=== PATIENT | female | born 1995 | race Two or more races ===

== ENCOUNTER → 2020-03-29 10:01 | Outpatient (BNVA) | payer MEDICAID, SELFPAY | PROVIDERS: Visit Provider Surgery | DX: E66.01 Morbid (severe) obesity due to excess calories (principal); Z68.42 Body mass index [BMI] 45.0-49.9, adult; Z71.3 Dietary counseling and surveillance | CPT/HCPCS: 99202 ==

== ENCOUNTER 2020-03-30 14:35 | Outpatient (REF) | payer MEDICAID, SELFPAY ==
[2020-04-01 14:21] LABS: H Pylori Breath Test NOT DETECTED (NOT DETECTED)
== END 2020-03-30 14:36 | disposition home or self-care (01) ==
LOC: HO.LNP 14:35
PROVIDERS: Visit Provider Physician Assistant
DX: Z01.818 Encounter for other preprocedural examination (principal); Z11.0 Encounter for screening for intestinal infectious diseases
CPT/HCPCS: 83013

== ENCOUNTER → 2020-03-30 14:45 | Outpatient (BNVA) | payer MEDICAID, SELFPAY | PROVIDERS: PCP Registered Nurse; Visit Provider Physician Assistant | DX: Z01.818 Encounter for other preprocedural examination (principal); Z11.0 Encounter for screening for intestinal infectious diseases | CPT/HCPCS: 99211 ==

== ENCOUNTER 2020-03-31 06:25 | Outpatient (REF) | payer MEDICAID, SELFPAY ==
--- NOTE | 2020-03-31 | ECG_ITS ---
Test Reason : Z01.818 Blood Pressure : / mmHG Vent. Rate : 091 BPM Atrial Rate : 091 BPM P-R Int : 118 ms QRS Dur : 082 ms QT Int : 346 ms P-R-T Axes : 031 014 004 degrees QTc Int : 425 ms Normal sinus rhythm Normal ECG No previous ECGs available Referred By: Thomas Gold Electronically Signed By:AVNI GROVES MD
--- NOTE | 2020-03-31 07:16 | XR_ITS ---
EXAMINATION: XR CHEST CLINICAL INFORMATION: Morbid obesity. COMPARISON: 05/24/2019 TECHNIQUE: 2 views of the chest were obtained. FINDINGS: Lungs are well-inflated and clear. Trachea is midline in position. No interstitial disease, consolidation or mass. No pleural effusion or pneumothorax. Cardiac silhouette and pulmonary vessels are normal in size. The mediastinum and miranda have normal contour. The visualized bones, and upper abdomen, are unremarkable. XR/XR chest 2V IMPRESSION: No acute cardiopulmonary abnormality.
[2020-03-31 07:21] LABS: MANUAL DIFF FLAG NO
[2020-03-31 07:31] LABS: Basophils Percent Auto 0.3 % (0-2); Eosinophils Absolute Auto 0.3 X10*3/uL (0.0-0.4); Hematocrit 42.4 % (37-47); Imm Gran Abs Auto 0.06 X10*3/uL (0.00-0.03); Imm Gran Pct Auto 0.4 % (0.0-0.4); Lymphocytes Absolute Auto 4.6 X10*3/uL (1.2-4.9); Lymphocytes Percent Auto 33.7 % (20-40); Mean Corpuscular Hemoglobin 31.5 pg (27.0-33.0); Mean Corpuscular Volume 95.3 fL (80-98); Monocytes Absolute Auto 0.8 X10*3/uL (0.1-1.2); Neutrophils Absolute Auto 7.8 X10*3/uL (2.0-8.3); Neutrophils Percent Auto 57.6 % (45-73); Platelet Count 337 X10*3/uL (160-400); Red Blood Count 4.45 X10*6/uL (4.20-5.50); Red Cell Distribution Width 13.2 % (11.0-16.0); White Blood Count 13.6 X10*3/uL (4.8-10.8)
[2020-03-31 07:48] LABS: Alanine Aminotransferase 40 U/L (0-31); Albumin Level 4.5 g/dL (3.5-5.0); Alkaline Phosphatase 93 U/L (39-117); Anion Gap 13 (12-20); Aspartate Amino Transferase 32 U/L (5-31); Bilirubin Total 0.5 mg/dL (0.0-1.0); Blood Urea Nitrogen 14 mg/dL (9-16); C Reactive Protein 2.49 mg/dL (< or = 0.50); Calcium 9.6 mg/dL (8.4-10.2); Carbon Dioxide 28 mmol/L (22-29); Chloride 102 mmol/L (96-108); Cholesterol 221 mg/dL; Estimated Glomerular Filt Rate > 60; Glucose Random 86 mg/dL (60-115); HDL Cholesterol 39 mg/dL; LDL Cholesterol Calculated 156 mg/dl; Potassium 4.4 mmol/l (3.3-5.1); Sodium 139 mmol/L (135-145); Total Protein 8.5 g/dL (6.5-8.0); Triglycerides 133 mg/dL
[2020-03-31 07:49] LABS: Estimated Average Glucose 103 mg/dL; Hemoglobin A1c % 5.2 %
[2020-03-31 08:10] LABS: Ferritin 50 ng/mL (10-122); TSH reflex Free T4 1.57 mIU/mL (0.32-4.0)
[2020-03-31 08:24] LABS: Folate 13.9 ng/mL (> or = 4.0); Vitamin B12 400 pg/mL (200-900)
[2020-04-02 23:56] LABS: Zinc 68 mcg/dL (60-130)
[2020-04-04 06:36] LABS: Vitamin B1 11 nmol/L (8-30)
[2020-04-04 12:17] LABS: Insulin Level Total 24.3 uIU/mL
[2020-04-06 19:22] LABS: Vitamin A 54 mcg/dL (38-98)
== END 2020-03-31 06:26 | disposition home or self-care (01) ==
LOC: HO.XRAY 06:25
PROVIDERS: Visit Provider Surgery
DX: Z01.818 Encounter for other preprocedural examination (principal); E66.01 Morbid (severe) obesity due to excess calories
CPT/HCPCS: 36415; 71046; 80053; 80061; 82607; 82728; 82746; 83036; 83525; 84425; 84443; 84590; 84630; 85025; 86140; 93005

== ENCOUNTER → 2020-04-11 13:12 | Outpatient (BNVA) | payer MEDICAID, SELFPAY | PROVIDERS: PCP Registered Nurse; Referring Provider Registered Nurse; Visit Provider Dietitian, Registered | DX: Z76.89 Persons encountering health services in other specified circumstances (principal) ==

== ENCOUNTER 2020-04-12 09:17 | Outpatient (REF) | payer MEDICAID, SELFPAY ==
--- NOTE | 2020-04-12 | US_ITS ---
EXAMINATION: US COMPLETE ABDOMEN WITH LIVER ELASTOGRAPHY CLINICAL INFORMATION: Morbid obesity due to excess calories. COMPARISON: None. TECHNIQUE: Real-time imaging of the abdominal viscera. Noninvasive ultrasound liver fibrosis assessment is performed using Ousmane ElastPQ point quantification shear wave elastography (pSWE) with a 5 MHz transducer. Multiple elastography samples are obtained. FINDINGS: PANCREAS: Normal. ABDOMINAL AORTA: The proximal, middle, and distal aortic segments are normal in caliber. INFERIOR VENA CAVA: Visualized portions are normal. LIVER: Normal. The liver demonstrates normal size, contour and echogenicity. No focal lesion or intrahepatic biliary duct dilatation. The right lobe measures 18.3 cm in length. The left lobe measures 12.1 cm in length. Hepatopedal flow of the main portal vein. Shear wave elastography provides a median stiffness of 2.04 m/s (reference: normal median stiffness is 0.81 - 1.22 m/s). The IQR/median stiffness to assess sampling precision is 0.28 (reference: optimal IQR/median stiffness is under 0.3). GALLBLADDER: Cholecystectomy. COMMON BILE DUCT: Normal in caliber measuring 0.4 cm in diameter. RIGHT KIDNEY: Normal. No hydronephrosis. No renal calculi or focal parenchymal lesions. The kidney measures 12.4 cm in maximum dimension. LEFT KIDNEY: Normal. No hydronephrosis. No renal calculi or focal parenchymal lesions. The kidney measures 10.5 cm in maximum dimension. SPLEEN: Normal. The spleen measures 9.5 cm in maximum dimension. FREE FLUID: None. US/US abdomen comp w elastography IMPRESSION: 1. Cholecystectomy. Otherwise unremarkable abdominal ultrasound. 2. Elastography: Liver elastography measurements are consistent with a high risk for clinically significant liver fibrosis (METAVIR Stage F3-F4).
--- NOTE | 2020-04-12 10:03 | FL_ITS ---
EXAMINATION: XR GI SERIES CLINICAL INFORMATION: Morbid obesity due to excess calories COMPARISON: None TECHNIQUE: Fluoroscopic assessment of the upper GI tract was performed in various upright and supine/prone obliquities utilizing thin and thick high density barium contrast material and effervescent granules. FINDINGS: The esophagus was normal in course, caliber, and contour. There was normal distensibility with no fixed segment of narrowing. No focal mucosal abnormality was identified. No significant esophageal dysmotility was observed. Contrast passed freely across the gastroesophageal junction into the stomach. No significant hiatal hernia. There was normal distensibility of the stomach with no focal abnormality identified. There was prompt gastric emptying into the duodenum which demonstrated a normal appearance. No gastroesophageal reflux was observed. FLUOROSCOPY TIME: 1.6 minutes DOSE AREA PRODUCT: 31.306 Gy-cm2 (whitaker-centimeter squared) FL/FL upper GI series IMPRESSION: Normal upper GI examination.
== END 2020-04-12 09:18 | disposition home or self-care (01) ==
LOC: HO.US 09:17
PROVIDERS: Visit Provider Surgery
DX: Z01.818 Encounter for other preprocedural examination (principal); E66.01 Morbid (severe) obesity due to excess calories; K21.9 Gastro-esophageal reflux disease without esophagitis
CPT/HCPCS: 74240; 76705; 76981

== ENCOUNTER → 2020-04-18 08:11 | Outpatient (BNVA) | payer MEDICAID, SELFPAY | PROVIDERS: PCP Registered Nurse; Visit Provider Surgery | DX: Z76.89 Persons encountering health services in other specified circumstances (principal) ==

== ENCOUNTER → 2020-05-10 08:19 | Outpatient (BNVA) | payer MEDICAID, SELFPAY | PROVIDERS: PCP Registered Nurse; Referring Provider Registered Nurse; Visit Provider Dietitian, Registered | DX: Z76.89 Persons encountering health services in other specified circumstances (principal) ==

== ENCOUNTER → 2020-05-11 08:33 | Outpatient (BNVA) | payer MEDICAID, SELFPAY | PROVIDERS: PCP Registered Nurse; Visit Provider Surgery | DX: Z76.89 Persons encountering health services in other specified circumstances (principal) ==

== ENCOUNTER → 2020-06-08 08:25 | Outpatient (BNVA) | payer MEDICAID, SELFPAY | PROVIDERS: PCP Registered Nurse; Visit Provider Surgery | DX: Z76.89 Persons encountering health services in other specified circumstances (principal) ==

== ENCOUNTER → 2020-07-06 08:19 | Outpatient (BNVA) | payer MEDICAID, SELFPAY | PROVIDERS: PCP Registered Nurse; Visit Provider Surgery ==

== ENCOUNTER 2024-11-09 10:45 | Outpatient (REF) | payer MEDICAID, SELFPAY | END 2024-11-09 10:46 | disposition home or self-care (01) | LOC: HO.HHCX 10:45 | PROVIDERS: Visit Provider Family Medicine | DX: Z13.89 Encounter for screening for other disorder (principal) ==

== ENCOUNTER 2024-12-26 19:23 | Emergency (ER) | payer MEDICAID, SELFPAY ==
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
[2024-12-26 19:38] VITALS: BP 135/78; PULSE 100; RESP 16; TEMP 36.8; O2SAT 96; BMI 43.9
[2024-12-26 19:54] LABS: Hematocrit 40.3 % (37.0-47.0); Hemoglobin 14.5 g/dl (12.0-16.0); Imm Gran Abs Auto 0.07 X10*3/uL (0.00-0.03); Imm Gran Pct Auto 0.5 % (0.0-0.4); Lymphocytes Absolute Auto 2.1 X10*3/uL (1.2-4.9); MANUAL DIFF FLAG NO; Mean Corpuscular HGB Conc 36.0 g/dl (31.0-35.0); Mean Corpuscular Hemoglobin 34.0 pg (27.0-33.0); Mean Corpuscular Volume 94.4 fL (80.0-98.0); NRBC Abs Auto 0.000 X10*3/uL (0.0-0.012); NRBC Pct Auto 0.0 /100WBC (0.0-0.2); Platelet Count 312 X10*3/uL (160-400); Red Blood Count 4.27 X10*6/uL (4.20-5.50); White Blood Count 15.2 X10*3/uL (4.8-10.8)
[2024-12-26 20:14] LABS: Alanine Aminotransferase 36 U/L (0-31); Albumin Level 4.8 g/dL (3.5-5.0); Alkaline Phosphatase 128 U/L (39-117); Anion Gap 16 (12-20); Aspartate Amino Transferase 39 U/L (5-31); Blood Urea Nitrogen 8 mg/dL (9-16); Calcium 9.7 mg/dL (8.4-10.2); Carbon Dioxide 26 mmol/L (22-29); Chloride 101 mmol/L (96-108); Creatinine Clr Calc Pharmacy 126.1; Estimated Glomerular Filt Rate > 60; Lipase 14 U/L (8-78); Potassium 3.5 mmol/L (3.3-5.1); Sodium 139 mmol/L (135-145); Total Protein 8.5 g/dL (6.5-8.0)
[2024-12-26 21:14] LABS: Appearance Urine Cloudy; Glucose Urine UA Negative (Negative); PH 6.0 (5.0-9.0); Specific Gravity - Urine >= 1.030 (1.005-1.025); UMIC TRIGGER UACC YES
[2024-12-26 21:33] LABS: UACC Culture Trigger YES
[2024-12-26 22:30] VITALS: BP 107/72; PULSE 85; RESP 16; TEMP 36.6; O2SAT 97
[2024-12-26] MEDS: diazePAM 10 MG/2 ML CARTRIDGE 5 MG IVPUSH (22:49)
[2024-12-26] MEDS: iohexoL 350 MG/ML 100 ML INFUS..BTL IV (23:26)
[2024-12-27 00:43] VITALS: BP 102/61; PULSE 78; RESP 16; TEMP 37; O2SAT 96
[2024-12-27 02:05] VITALS: BP 104/65; PULSE 71; RESP 16; TEMP 36.9; O2SAT 99
[2024-12-27 02:23] VITALS: BP 104/65; PULSE 71; RESP 16; TEMP 36.9; O2SAT 99
== END 2024-12-27 02:23 | disposition home or self-care (01) ==
PROVIDERS: Nurse Practitioner Family; Emergency Provider Emergency Medicine; PCP Nurse Practitioner Primary Care
DX: S30.1XXA Contusion of abdominal wall, initial encounter (principal); S16.1XXA Strain of muscle, fascia and tendon at neck level, initial encounter; Y04.0XXA Assault by unarmed brawl or fight, initial encounter; Y93.9 Activity, unspecified; Y92.9 Unspecified place or not applicable; Y99.9 Unspecified external cause status; F12.90 Cannabis use, unspecified, uncomplicated; E66.2 Morbid (severe) obesity with alveolar hypoventilation; Z68.41 Body mass index [BMI] 40.0-44.9, adult
CPT/HCPCS: 36415; 74177; 80053; 81001; 83690; 84702; 85025; 87086; 96361; 96374; 96375; 99285; J2405; J3360; Q9967

== ENCOUNTER → 2024-12-26 22:30 | Outpatient (BNV) | payer MEDICAID, SELFPAY | PROVIDERS: Emergency Provider Emergency Medicine; PCP Nurse Practitioner Primary Care; Visit Provider Radiology Diagnostic Radiology | DX: S30.92XA Unspecified superficial injury of abdominal wall, initial encounter (principal) | CPT/HCPCS: 74177 ==

== ENCOUNTER 2025-02-23 08:58 | Emergency (ER) | payer MEDICAID, SELFPAY ==
--- NOTE | ~2025-02-23 | XR_ITS ---
EXAMINATION: XR ANKLE, LEFT CLINICAL INFORMATION: felt a pop , painful, can't walk COMPARISON: None available. TECHNIQUE: AP, lateral, and mortise views of the left ankle. FINDINGS: There is no fracture, dislocation, or suspicious bone lesion. Alignment is normal. The ankle mortise is preserved. The talar dome is intact. The calcaneus and subtalar joints are intact. There is a moderate size plantar calcaneal spur, and a small dorsal spur. There is mild lateral soft tissue swelling. XR/XR ankle LT min 3V IMPRESSION: 1. No acute bony abnormalities. Mild lateral soft tissue swelling. Electronically signed by: Charan Marroquin MD 02/23/2025 09:37 AM EDT
[2025-02-23 09:06] VITALS: BP 130/82; PULSE 87; RESP 18; TEMP 36.6; O2SAT 98; BMI 44.3
--- NOTE | 2025-02-23 10:27 | ED_ITS ---
HPI - Extremity Injury (Lower) General Chief Complaint: Extremity Injury, Lower Stated Complaint: L ankle injury Time Seen by Provider: 02/23/25 10:21 Source: patient Mode of arrival: ambulatory Limitations: no limitations History of Present Illness ED Provider: DR. Kimbrough HPI Narrative: 30-year-old female came in for evaluation of left ankle pain started since last night when she tried to run, patient twisted her left ankle, felt a pop in her ankle complaining of severe pain, able to ambulate with pain. No fall, no head injury, no neck pain. Related Data Home Medications ?Medication ?Instructions ?Recorded ?Confirmed ibuprofen 600 mg tablet 600 mg PO Q8H PRN 03/29/20 1 05/29/19 Previous Rx's ?Medication ?Instructions ?Recorded cephalexin 500 mg capsule 500 mg PO Q12H #13 caps 08/18 ketorolac 10 mg tablet 10 mg PO Q6H PRN pain #20 ta bs 12/27/24 methocarbamol 750 mg tablet 1,500 mg (2 x 750 mg) PO Q 8H PRN 12/27/24 pain, moderate #24 tabs Allergies Allergy/AdvReac Type Severity Reaction Status Date / Time No Known Allergies Allergy Verified 02/23/25 09:09 Review of Systems Review of Systems: All other systems are reviewed and are negative Constitutional: Reports as per HPI and Reports no additional constitutional complaints Eyes: Reports as per HPI and Reports no additional eye complaints Reports system reviewed and no additional complaints, except as documented Cardiovascular: Reports as per HPI and Reports no additional cardiovascular complaints Respiratory: Reports as per HPI and Reports no additional respiratory complaints Gastrointestinal: Reports as per HPI and Reports no additional gastrointestinal complaints Genitourinary: Reports no additional female genitourinary complaints Musculoskeletal: Reports no additional musculoskeletal complaints Skin/Breast: Reports system reviewed and no additional complaints, except as docu Psychiatric: Reports no additional psychiatric complaints Endocrine: Reports no additional endocrine complaints Hematologic/Lymphatic: Reports no additional hematologic/lymphatic complaints Allergic/Immunologic: Reports no additional allergic/immunologic complaints Reports system reviewed and no additional complaints, except as documented and Reports Abnormal speech present [facility] Past Medical History Surgical History Morbid obesity Hx of eye surgery Hx of appendectomy Hx laparoscopic cholecystectomy History of wisdom tooth extraction, class II edentulism Family History Family History Father No problems noted. Mother DM (diabetes mellitus) Heart disease Stroke Depression Anxiety Sister No problems noted. Sister No problems noted. Sister No problems noted. Sister No problems noted. Sister No problems noted. Sister No problems noted. Brother No problems noted. Brother No problems noted. Brother No problems noted. Brother No problems noted. Brother Obese Chronic mental illness Son Obese Asthma Son Autism Social History Social History Alcohol intake: current Alcohol intake frequency: holidays/special occasions only Cigarettes Per Day: 10 Substance Use Type: Marijuana Advance Directives: No Advance Directives Information Provided: Yes Physical Exam Vital Signs: Vital Signs: Last Vital Signs Temp 97.9 F 02/23/25 09:06 Pulse 87 02/23/25 09:06 Resp 18 02/23/25 09:06 BP 130/82 02/23/25 09:06 Pulse Ox 98 02/23/25 09:06 O2 Del Method Room Air 02/23/25 09:06 BMI result Body Mass Index 44.3 Vital signs have been reviewed and appear to be correct. Blood pressure elevated. Heart rate normal. Respiratory rate normal. Temperature normal. Oxygen saturation normal. Appearance: Alert. Oriented X3. No acute distress. Head: Normal external exam. Normocephalic. Atraumatic. No [place] signs noted. No raccoon eyes noted Eyes: PERRLA. EOMI. Conjunctiva and sclera normal. Eyelids normal. ENT: TM's Normal. Pharynx normal. Uvula midline. Moist mucous membranes. No trismus noted. No drooling noted. No muffled voice noted. Neck: Normal inspection. Neck supple. FROM. No adenopathy. Thyroid Normal. No meningeal signs. No neck mass noted. CVS: Normal heart rate and rhythm. Heart sound normal. No murmurs noted. Pulses normal throughout. Respiratory: No respiratory distress. Painless inspiration. Breath sounds normal. No wheezes/rales/rhonchi noted. Chest nontender. No accessory muscle usage noted or decreased air movement noted. Abdomen: Soft and nontender. Bowel sounds normal in all 4 quadrants. No distention noted. No organomegaly noted. No visible injury noted. Back: No CVA tenderness. Full range of motion noted. Skin: Skin warm and dry. Normal skin color. Normal skin turgor. No rashes/lesions/lacerations noted. Extremities: Left ankle/ left foot: No obvious deformity, no step-off, neurovascularly intact, mild tenderness over the lateral malleolus. Neuro: Oriented X 3. Cranial nerve exam: II-XII are grossly intact No motor deficit. No sensory deficit. Reflexes normal. Course Reevaluation(s) Reevaluation #1: Left ankle sprain. Raúl bandage. NSAIDs. Ice. Follow-up with ortho. Time: 10:30 Medical Decision Making Differential Diagnosis Differential Diagnoses: The differential diagnosis associated with the presentation includes (Left ankle fracture, left ankle sprain , neurovascular stability.) Admission/Observation Consideration of admission/observation: Escalation of care including admission/observation considered Independent Interpretation I performed an independent interpretation of an: Plain X-Ray ( Left ankle: No acute fracture or dislocation.) Radiology Impression Discussion of test interpretation with radiology: I have reviewed the radiologist's reading. Discharge Plan Discharge Clinical Impression: Contusion of ankle, left Patient Disposition: Home, Self-Care Instructions: Contusion in Adults (ED) Additional Instructions: take [id number] ibuprofen /Motrin / or Advil 200 mg tablet every 6 hours if needed for pain. Apply ice to the left ankle. Elevate the ankle at bedtime. Prescriptions: No Action cephalexin 500 mg capsule 500 mg PO Q12H Qty: 13 0RF methocarbamol 750 mg tablet 1,500 mg PO Q8H PRN (Reason: pain, moderate) Qty: 24 0RF ketorolac 10 mg tablet 10 mg PO Q6H PRN (Reason: pain) Qty: 20 0RF Rx Instructions: maximum total duration of 5 days from all oral, intranasal, or parenteral formulations. The patient received an IV dose of Toradol here in the ER ibuprofen 600 mg tablet 600 mg PO Q8H PRN Referrals: Kayla Valdes NP [Primary Care Provider, Internal Medicine] Fabrice Madrigal MD [Physician, Orthopedics] Print Language: Camb[place]ian
[2025-02-23 10:53] VITALS: BP 130/82; PULSE 87; RESP 18; TEMP 36.6; O2SAT 98
--- OUTSIDE RECORDS SUMMARY | 2025-02-23 11:17 | XMS_ITS | Clinical Summary ---
Author Organization [employer] Address [address] [facility] [address] [place] [address] Care Team Providers Care Pilot Boat Captain Name Role Phone Hernando Tarango EDMOND Primary Care Provider [phone] Allergies No known active allergies Medications cholestyramine (Questran) 4 g packetIndication s:Postcholecyste ctomy diarrhea Take 1 packet (4 g) by mouth with breakfast, with lunch, and with evening meal. 90 packet 11 11/10/19 25 026 Active phentermine 15 MG capsuleIndicatio ns:Class 3 severe obesity due to excess calories with body mass index (BMI) of 45.0 to 49.9 in adult, unspecified whether serious comorbidity present (HCC) Take 1 capsule (15 mg) by mouth before breakfast. 30 capsule 2 11/10/19 25 Active albuterol 108 (90 Base) MCG/ACT inhalerIndicatio ns:Mild intermittent asthma without complication INHALE 2 PUFFS BY MOUTH EVERY 4 HOURS NEEDED FOR SHORTNESS OF BREATH OR WHEEZING 18 g 02/04/20 25 Active albuterol 108 (90 Base) MCG/ACT inhalerIndicatio ns:Mild intermittent asthma without complication Inhale 2 puffs every 4 (four) hours if needed for shortness of breath or wheezing. 18 g 11/10/19 25 025 Discontinued Active Problems Problem Noted Date Diagnosed Date Left ankle pain 11/09/2024 Assessment & Plan (11/09/2024 10:27 AM EDT): - History of sprain likely re-injury - Will evaluate x-ray. 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 - Will prescribed albuterol inhaler. Obesity 08/14/2021 Assessment & Plan (11/09/2024 10:24 AM EDT): - Pt is interested in weight loss mediation especially GLP1/RA. Will start with phentermine - Follow up with PCP - Continue with lifestyle modifications Smoker 08/14/2021 Encounters Date Type Department Care Team Description 02/23/2025 Orders Only [facility] External Provider, [facility] 02/10/[address] [address] Hernando Tarango ANP chart prep 02/09/[address] [address] Hernando Tarango ANP Nurse Triage 02/04/[address] [address] Hernando Tarango ANP No Show 02/03/[address] [address] Hernando Tarango ANP chart prep 02/03/[address] [address] Giselle Gross MD Mild intermittent asthma without complication 12/30/2024 Telephone [facility] [address] [place] [phone] Faby Lewis MA 12/30/2024 Telephone [facility] [address] [place] [phone] Faby Lewis MA 12/26/2024 Orders Only GENERIC EXTERNAL DATA DEPARTMENT Provider, Generic External Data 12/22/[address] [phone] Hernando Tarango ANP No Show (No show sick on site) 12/21/2024 Telephone [facility] [address] [place], [place] [phone] Stephanie Freeman MA chart prep 12/21/2024 Telephone [facility] [address] [place], [place] [phone] Hernando Tarango ANP Nurse Triage 12/07/2024 Telephone [facility] [address] [place] [address] America Fulton CNM CHART PREP from Last 3 Months Immunizations Immunization Administration Dates Next Due DTaP 09/06/2017, 1,01/26/1997,1996,1996,1996 HPV, Quadrivalent 02/27/2016,12/03/2012,08/30/19 13 Hep B, Adolescent or Pediatric 9,11/23/2008,02/17/1997,1996,1996 Hep B, Unspecified 02/27/2016 HiB, unspecified 01/26/1997, 7,1996,1995 IPV 2001, 7,1996,1995 Influenza injectable quadriv alent preservative free 03/19/2022 Influenza, IIV3, injectable 07/02/2014, 4,04/11/2007 MMR 02/27/2016,2001,02/17/1997 Tdap 05/27/2017,09/28/2014 Varicella 08/08/2006,02/17/1997 Social History Tobacco Use Types Packs/Day Years Used Date Smoking Tobacco: Every Day Cigarettes 0.5 10 Started: 05/18/2022 Tobacco Cessation:Ready to Q uit: No; Counseling Given: Yes Alcohol Use Standard Drinks/Week Comments Yes 0 (1 standard drink = 0.6 oz pur e alcohol) Alcohol Answer Date Recorded How often do you have a drink containing alcohol ? 2 11/09/2024 How many drinks containing a lcohol do you have on a typical day when you are drinking? 2 11/09/2024 Frequency of Binge Drinking Not on file 10/25 Depression Answer Date Recorded Patient Health Questionnaire-9 Score 1 11/09/2024 Patient Health Questionnaire-9 Score 1 11/09/2024 Last PHQ-9: Questionnaire Data Not on file 0 11/09/2024 Housing Stability Answer Date Recorded What is your housing situation today? I have juice gallagher 11/02/[address] you li ve. Do you have problems with any of the following? None of the above 11/02/2024 Food Insecurity Answer Date Recorded Within the past 12 months, y ou worried that your food would run out before you got money to buy more: Never True 11/02/2024 Within the past 12 months,th e food you bought just didn't last and you didn't have enough money to get more: Never True 01/2025 Transportation Answer Date Recorded In the past 12 months, has l ack of transportation kept you from medical appts, meetings, work or from getting things needed for daily living? No 11/02/2024 Utilities Answer Date Recorded In the past 12 months, has t he electric, gas, oil or water company threatened to shut off services in your home? 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 Not on file Not on file Not on file Last Filed Vital Signs Vital Sign Reading Time Taken Comments Blood Pressure 124/90 11/09/2024 9:47 AM EDT Pulse 84 11/09/2024 9:47 AM EDT Temperature 35.6 C (96 F) 11/09/2024 9:47 AM EDT Respiratory Rate 12 11/09/2024 9:47 AM EDT Oxygen Saturation - - Inhaled Oxygen Concentration - - Weight 128 kg (283 lb 3.2 oz) 11/09/2024 9:47 AM EDT Height 162.6 cm (5' 4 ) 11/09/2024 9:47 AM EDT Body Mass Index 48.61 11/09/2024 9:47 AM EDT Plan of Treatment Health Maintenance Due Date Last Done Comments Family Planning (PISQ) 01/14/2011 Pneumococcal Vaccine: Pediatrics (0 to 5 Years) and At-Risk Patients (6 to 49) Years (1 of 2 - PCV) 01/14/2015 Pap Smear 01/14/2017 COVID-19 Vaccine (1 - season) 2025 Influenza Vaccine (#1) 2025 , 07/02/2014, 06/25/2013, Additional history exists SDOH Screening 11/02/2025 11/02/2024 Alcohol/Substance Use Screening 11/09/2025 11/09/2024 Depression Screening 11/09/2025 11/09/2024, 11/10/19 25 Disability Screening 11/09/2025 11/09/2024 Tobacco Screening 11/09/2025 11/09/2024 Lipid Panel 03/13/2027 03/13/2022 DTaP/Tdap/Td Vaccines (8 - Td or Tdap) 09/07/2027 09/06/2017, 05/27/2017, 09/28/2014, Additional history exists Zoster Vaccines (1 of 2) 01/14/2046 RSV Patients and Patients Aged 60 years or older (1 - 1-dose 75+ series) 01/14/2071 HIB Vaccines Completed 01/26/1997, 10/25, 1996, Additional history exists IPV Vaccines Completed 2001, 10/25, 1996, Additional history exists HPV Vaccines Completed 02/27/2016, 11/24, 08/29/2012 Hepatitis B Vaccines Completed 02/27/2016, 01/07/2009, 11/23/2008, Additional history exists HIV Screening Completed 03/13/2022 Hepatitis C Screening Completed 03/13/2022 Hepatitis A Vaccines Aged Out No long er eligible based on patient's age to complete this topic Meningococcal B Vaccine Aged Out No l onger eligible based on patient's age to complete this topic Meningococcal Vaccine Aged Out No andre katy eligible based on patient's age to complete this topic RSV under 20 months Aged Out No longe r eligible based on patient's age to complete this topic Rotavirus Vaccines Aged Out No longer eligible based on patient's age to complete this topic Procedures Procedure Name Priority Date/Time Associated Diagnosis Comments XR ANKLE 3+ VIEWS LEFT Routine 9:[address] ABDOMEN PELVIS W CONTRAST Routine 12/27/2024 12:24 AM EDT URINALYSIS, COMPLETE, WITH REFLEX TO CULTURE Routine 12/26/2024 9:08 PM EDT CULTURE, URINE, ROUTINE Routine 12/26/2024 9:08 PM EDT HCG, TOTAL, QN Routine 12/26/2024 7:49 PM EDT LIPASE Routine 12/26/2024 7:49 PM EDT COMPREHENSIVE METABOLIC PANEL Routine 12/26/2024 7:49 PM EDT CBC WITH AUTO DIFFERENTIAL Routine 12/26/2024 7:49 PM EDT ZZZ HISTORICAL HEPATITIS C AB W/REFL TO HCV RNA, QN, PCR Routine 03/13/2022 11:33 AM EDT HIV 1/2 ANTIGEN/ANTIBODY, FOURTH GENERATION W/RFL Routine 03/13/2022 11:33 AM EDT LIPID PANEL, STANDARD Routine 03/13/2022 11:33 AM EDT from Last 3 Months or Most Recently Relevant to Health Maintenance Results * XR Ankle 3+ Views Left (02/23/2025 9:20 AM EDT) Anatomical Region Laterality Modality Lower Extremities, Ankle Left Radiogr aphic Imaging 02/23/2025 9:20 AM EDT Narrative 02/23/2025 9:40 AM EDT [address] [address] XRay Report Signed Patient: Emily Solis MR#: [id number] : 1995 Acct:[id number] Age/Sex: 30 / F ADM Date: 02/23/25 Loc: HO.ED Attending Dr: Ordering Physician: Generic ED Physician Date of Service: 02/23/25 Procedure(s): XR ankle LT min 3V Accession Number(s): [id number] cc: Generic ED Physician; HERNANDO TARANGO NP Reason for Exam: felt a pop painful can't walk EXAMINATION: XR ANKLE, LEFT CLINICAL INFORMATION: felt a pop , painful, can't walk COMPARISON: None available. TECHNIQUE: AP, lateral, and mortise views of the left ankle. FINDINGS: There is no fracture, dislocation, or suspicious bone lesion. Alignment is normal. The ankle mortise is preserved. The talar dome is intact. The calcaneus and subtalar joints are intact. There is a moderate size plantar calcaneal spur, and a small dorsal spur. There is mild lateral soft tissue swelling. XR/XR ankle LT min 3V IMPRESSION: 1. No acute bony abnormalities. Mild lateral soft tissue swelling. Electronically signed by: Charan Marroquin MD 02/23/2025 09:37 AM EDT Dictated By: Charan Marroquin MD Signed By: <Electronically signed by Charan Marroquin MD in OV> 02/23/25936 DD/ 9 TD/TT: 02/23/25924 Security Support Analyst: Procedure Note Donotuseinterpreter, Image - 02/23/[address] [address] XRay Report Signed Patient: Emily SolisMR#: [id number] : 1995Acct:[id number] Age/Sex: 30 / FADM Date: 02/23/25 Loc: HO.ED Attending Dr: Ordering Physician: Generic ED Physician Date of Service: 02/23/25 Procedure(s): XR ankle LT min 3V Accession Number(s): [id number] cc: Generic ED Physician; HERNANDO TARANGO DATA ADMINISTRATOR Reason for Exam: felt a pop painful can't walk EXAMINATION: XR ANKLE, LEFT CLINICAL INFORMATION: felt a pop , painful, can't walk COMPARISON: None available. TECHNIQUE: AP, lateral, and mortise views of the left ankle. FINDINGS: There is no fracture, dislocation, or suspicious bone lesion. Alignment is normal. The ankle mortise is preserved. The talar dome is intact. The calcaneus and subtalar joints are intact. There is a moderate size plantar calcaneal spur, and a small dorsal spur. There is mild lateral soft tissue swelling. XR/XR ankle LT min 3V IMPRESSION: 1. No acute bony abnormalities. Mild lateral soft tissue swelling. Electronically signed by: Charan aMrroquin MD 02/23/2025 09:37 AM EDT Dictated By: Charan Marroquin MD Signed By: <Electronically signed by Charan Marroquin MD in OV> 02/23/25936 DD/ 9 TD/TT: 02/23/25924 Security Support Analyst: [facility] External Provider IMG XR PROCEDURES Edited Result - Final * CT Abdomen Pelvis w/ Contrast (12/27/2024 12:24 AM EDT) Anatomical Region Laterality Modality Body, Pelvis, Abdomen Computed T omography 12/27/2024 12:2 4 AM EDT Narrative 12/27/2024 12:26 AM EDT [place] [address] CT Scan Report Signed Patient: Emily Solis MR#: [id number] : 1995 Acct:[id number] Age/Sex: 29 / F ADM Date: 12/26/24 Loc: HO.ED Attending Dr: Ordering Physician: Carrie García Date of Service: 12/26/24 Procedure(s): CT abdomen pelvis w IV con Accession Number(s): [id number] cc: Carrie García; TARANGO,HERNANDO DATA ADMINISTRATOR Report Number: [id number]: Total DLP = 947.00 mGy-cm CLINICAL HISTORY: perf viscous, blunt abdominal trauma CT abdomen and pelvis with contrast Comparison: None provided Findings: No consolidation or effusion. Gallbladder is absent. Liver, spleen, adrenal glands and kidneys are normal. Pancreas is unremarkable. No bowel obstruction, pneumoperitoneum, or pneumatosis. There is some fat within the wall of the ascending colon and transverse colon, a finding that can be associated with prior episodes of bowel inflammation. Appendix is surgically absent. Uterus and adnexa are unremarkable. No free fluid in the peritoneal cavity. No acute fracture. IMPRESSION: No acute findings. This document has been electronically signed by: Giles Rodriguez MD on 12/27/2024 00:24:05 Dictated By: Giles Rodriguez MD Signed By: <Electronically signed by Giles Rodriguez MD in OV> 12/27/2424 DD/ TD/TT: 12/27/2423 Security Support Analyst: Procedure Note Donotuseinterpreter, Image - 12/27/[address] [place] [address] [address] Scan Report Signed Patient: Emily Solis#: [id number] : 1995Acct:[id number] Age/Sex: 29 FADM Date: 12/26/24 Loc: HO.ED Attending Dr: Ordering Physician: Carrie García Date of Service: 12/26/24 Procedure(s): CT abdomen pelvis w IV con Accession Number(s): [id number] cc: Carrie García; HERNANDO TARANGO NP Report Number: [id number]: Total DLP = 947.00 mGy-cm CLINICAL HISTORY: perf viscous, blunt abdominal trauma CT abdomen and pelvis with contrast Comparison: None provided Findings: No consolidation or effusion. Gallbladder is absent. Liver, spleen, adrenal glands and kidneys are normal. Pancreas is unremarkable. No bowel obstruction, pneumoperitoneum, or pneumatosis. There is some fat within the wall of the ascending colon and transverse colon, a finding that can be associated with prior episodes of bowel inflammation. Appendix is surgically absent. Uterus and adnexa are unremarkable. No free fluid in the peritoneal cavity. No acute fracture. IMPRESSION: No acute findings. This document has been electronically signed by: Giles Rodriguez MD on 12/27/2024 00:24:05 Dictated By: Giles Rodriguez MD Signed By: <Electronically signed by Giles Rodriguez MD in OV> 12/27/2424 DD/ TD/TT: 12/27/2423 Security Support Analyst: [facility] External Provider IMG CT PROCEDURES Final Result * (ABNORMAL) Urinalysis, Complete, with Reflex to Culture (12/26/2024 9:08 PM EDT) Color Urine Dark Yellow [facility] Appearance Urine Cloudy [facility] PH 6.0 5.0 - 9.0 [facility] Glucose Urine UA Negative Negative mg/dL [facility] Urine Blood Negative Negative [facility] Specific [place] - Urine >=1.030(H) 1.005 - 1.025 [facility] Urine Protein 100 (2+)(A) Neg-Trace mg/dL [facility] Urine Ketones 80 Negative mg/dL [facility] Nitrite Urine Positive(A) Negative [facility] Leukocyte Esterase Urine Small (1+)(A) Negative [facility] RBC Urine 3-5(A) 0 - 2 /HPF [facility] Urine WBC 0-5 0 - 5 /HPF [facility] Urine Squamous Epithelial Cell 11-20 0 - 2 /HPF [facility] Urine Bacteria 4+ None Seen [facility] Hyaline Casts, Urine 3-5 0 - 2 /LPF [facility] 12/26/2024 9:08 PM EDT 12/26/2024 9:11 PM EDT Narrative [facility] - 12/26/2024 9:34 PM EDT [id number], Clean Catch Generic External Data Provider LAB URINE ORDERAB LES Final Result Performing Organization Address City/[facility]/ZIP Co de Phone Number [facility] [address] [place] [address] [phone] * Culture, Urine, Routine (12/26/2024 9:08 PM EDT) Urine Urine specimen obtained by clean catch procedure / Unknown 12/26/2024 9:08 PM EDT 12/26/2024 9:35 PM EDT Comment:UACC Narrative [facility] - 12/28/2024 8:16 AM EDT Urine Culture Report Result Urine Culture > 100,000 cfu/ml Urine Culture Mixed bacterial reynaldo characteristic of Urine Culture urogenital contamination. Specimen Source: Urine clean catch us Generic External Data Provider LAB MICROBIOLOGY - GENERAL ORDERABLES Final Result Performing Organization Address [facility]/ZIP Co de Phone Number [facility] [address] [place] [address] [phone] * (ABNORMAL) CBC auto differential (12/26/2024 7:49 PM EDT) White Blood Count 15.2(H) 4.8 - 10.8 X10*3/uL [facility] Red Blood Count 4.27 4.20 - 5.50 X10*6/uL [facility] Hemoglobin 14.5 12.0 - 16.0 g/dl [facility] Hematocrit 40.3 37.0 - 47.0 % [facility] Mean Corpuscular Volume 94.4 80.0 - 98.0 fL [facility] Mean Corpuscular Hemoglobin 34.0(H) 27.0 - 33.0 pg [facility] Mean Corpuscular HGB Conc 36.0(H) 31.0 - 35.0 g/dl [facility] Red Cell Distribution Width 14.0 11.0 - 16.0 % [facility] Platelet Count 312 160 - 400 X10*3/uL [facility] Mean Platelet Volume 8.9(L) 9.4 - 12.3 fL [facility] Neutrophils Percent Auto 79.5(H) 45 - 73 % [facility] Imm Gran Pct Auto 0.5(H) 0.0 - 0.4 % [facility] Lymphocytes Percent Auto 14.0(L) 20 - 40 % [facility] Monocytes Percent Auto 4.9 2 - 11 % [facility] Eosinophils Percent Auto 0.8 0 - 4 % [facility] Basophils Percent Auto 0.3 0 - 2 % [facility] NRBC Pct Auto 0.0 0.0 - 0.2 /100WBC [facility] Neutrophils Absolute Auto 12.1(H) 2.0 - 8.3 x10*3/uL [facility] Imm Gran Abs Auto 0.07(H) 0.00 - 0.03 X10*3/uL [facility] Lymphocytes Absolute Auto 2.1 1.2 - 4.9 X10*3/uL [facility] Monocytes Absolute Auto 0.7 0.1 - 1.2 X10*3/uL [facility] Eosinophils Absolute Auto 0.1 0.0 - 0.4 X10*3/uL [facility] Basophils Absolute Auto 0.1 0.0 - 0.2 X10*3/uL [facility] NRBC Abs Auto 0.000 0.0 - 0.012 X10*3/uL [facility] 12/26/2024 7:49 PM EDT 12/26/2024 7:53 PM EDT us Generic External Data Provider LAB BLOOD ORDERAB LES Final Result [facility] [address] [place] [address] [phone] * hCG, Total, Quantitative (12/26/2024 7:49 PM EDT) HCG Quantitative <2 mIU/mL [facility] Comment:Weeks post LMP Appro ximate hCG(Last Menstrual Period) Range (mIU/ml)3 - 4 weeks 9 - 1304 - 5 weeks 75 - 2,6005 - 6 weeks 850 - 20,8006 - 7 weeks 4000 - 100,2007 - 12 weeks 11,500 - 289,69372 - 16 weeks 18,300 - 137,37380 - 29 weeks (2nd trimester) 1,400 - 53,61592 - 41 weeks (3rd trimester) 940 - 60,000The Chen B- hCG assay is used for the early detection ofpregnancy; it cannot be used to diagnose any conditionunrelated to . If a B-hCG level is not supportedby the clinical evidence, results should be confirmed by analternative method (qualitative urine hCG, for example). 12/26/2024 7:49 PM EDT 12/26/2024 7:53 PM EDT Generic External Data Provider LAB BLOOD ORDERAB LES Final Result Performing Organization Address City/[facility]/ZIP Co de Phone Number [facility] [address] [place] [phone] * Lipase (12/26/2024 7:49 PM EDT) Lipase 14 8 - 78 U/L [facility] 12/26/2024 7:49 PM EDT 12/26/2024 7:53 PM EDT Generic External Data Provider LAB BLOOD ORDERAB LES Final Result Performing Organization Address [facility]/ZIP Co de Phone Number [facility] [address] [place] [phone] * (ABNORMAL) Comprehensive Metabolic Panel (12/26/2024 7:49 PM EDT) Sodium 139 135 - 145 mmol/L [facility] Potassium 3.5 3.3 - 5.1 mmol/L [facility] Chloride 101 96 - 108 mmol/L [facility] Carbon Dioxide 26 22 - 29 mmol/L [facility] Anion Gap 16 12 - 20 [facility] Urea Nitrogen (BUN) 8(L) 9 - 16 mg/dL [facility] Creatinine, Serum 0.86 0.5 - 1.4 mg/dL [facility] Creatinine Clr Calc Pharmacy 126.1 [facility] Comment:Provided height and weight: 165.1 cm,119.7 kg.eGFR (calculated from the MDRD study equation) and eCrCl(calculated from the Cockcroft-Gault equation) are based ondifferent parameters and may not yield comparable results.If eCrCl result is absurd, please check patient'sheight/weight. Estimated Glomerular Filt Rate >60 [facility] Comment:Chronic Kidney Disea se: Estimated GFR < 60 mL/min/1.51j3Ojnzwh Kidney Disease: Estimated GFR < 15 mL/min/1.73m2 Glucose 113 60 - 115 mg/dL [facility] Calcium 9.7 8.4 - 10.2 mg/dL [facility] Bilirubin, Total 1.3(H) 0.0 - 1.0 mg/dL [facility] Aspartate Amino Transferase 39(H) 5 - 31 U/L [facility] Alanine Aminotransferase 36(H) 0 - 31 U/L [facility] Total Protein 8.5(H) 6.5 - 8.0 g/dL [facility] Albumin Level 4.8 3.5 - 5.0 g/dL [facility] Alkaline Phosphatase 128(H) 39 - 117 U/L [facility] 12/26/2024 7:49 PM EDT 12/26/2024 7:53 PM EDT us Generic External Data Provider LAB BLOOD ORDERAB LES Final Result [facility] [address] [place] [address] [phone] * HEPATITIS C AB W/REFL TO HCV RNA, QN, PCR (03/13/2022 11:33 AM EDT) HEPATITIS C ANTIBODY NON-REACTI VE NON-REACT CAR [facility] INDEX 0.11 <1.00 [facility] Comment: HCV antibody was non-reactive. There is no laboratory evidence of HCV infection. In most cases, no further action is required. However, if recent HCV exposure is suspected, a test for HCV RNA (test code 18679) is suggested. For additional information please refer to http://Impressto.[place]/faq/OVH96k0 (This link is being provided for informational/ educational purposes only.) 03/13/2022 11:3 3 AM EDT us Hernando Tarango ANP HISTORICAL/NON ORDERABLE LABS Fi nal Result Performing Organization Address [facility] de Phone Number [facility] LAB[facility] * HIV 1/2 ANTIGEN/ANTIBODY,FOURTH GENERATION W/RFL (03/13/2022 11:33 AM EDT) Pathologist [facility] [place] HIV-1/2 ANTIGEN AND ANTIBODIES, 4TH GENERATION W/ REFLEX NON-REACT CAR NON-REACT ACR [facility] Comment: HIV-1 antigen and HIV-1/HIV-2 antibodies were not detected. There is no laboratory evidence of HIV infection. PLEASE NOTE: This information has been disclosed to you from records whose confidentiality may be protected by state law. If your state requires such protection, then the state law prohibits you from making any further disclosure of the information without the specific written consent of the person to whom it pertains, or as otherwise permitted by law. A general authorization for the release of medical or other information is NOT sufficient for this purpose. For additional information please refer to http://Impressto.[place]/faq/ANY224 (This link is being provided for informational/ educational purposes only.) The performance of this assay has not been clinically validated in patients less than 2 years old. 03/13/2022 11:3 3 AM EDT us Hernando Tarango ANP LAB BLOOD ORDERABLES Final Resul t Performing Organization Address [facility] de Phone Number [facility] LAB[facility] * (ABNORMAL) LIPID PANEL, STANDARD (03/13/2022 11:33 AM EDT) Chol/HDLC Ratio 4.4 <5.0 (calc) CONVERTED LEGACY LABS Cholesterol, Total 202(H) <200 mg/dL CONVERTED LEGACY LABS HDL Cholesterol 46(L) > OR = 50 mg/dL CONVERTED LEGACY LABS LDL Cholesterol 128(H) mg/dL (calc) CONVERTED LEGACY LABS Comment: Reference range: <100 Desirable range <100 mg/dL for primary prevention; <70 mg/dL for patients with CHD or diabetic patients with > or = 2 CHD risk factors. LDL-C is now calculated using the Rod-Watkins calculation, which is a validated novel method providing better accuracy than the Friedewald equation in the estimation of LDL-C. Rod SS et al. RUDOLPH. 2013;310(19): 6256-8513 (http://education.[employer]faq/NKM439) Non-HDL Cholesterol 156(H) <130 mg/dL (calc) CONVERTED LEGACY LABS Comment: For patients with diabetes plus 1 major ASCVD risk factor, treating to a non-HDL-C goal of <100 mg/dL (LDL-C of <70 mg/dL) is considered a therapeutic option. Triglycerides 167(H) <150 mg/dL CONVE RTED LEGACY LABS 03/13/2022 11:3 3 AM EDT Formerly [facility] LAB BLOOD ORDERABLES Final Resul t CONVERTED LEGACY LABS from Last 3 Months or Most Recently Relevant to Health Maintenance Insurance [facility] C3 Care Teams Pilot Boat Captain Relationship Specialty Start Date End Date Hernando Tarango ANP [address] [place] [id number] PCP - General Family Medicine 09/26/21
--- OUTSIDE RECORDS SUMMARY | 2025-02-23 11:17 | XMS_ITS | Encounter Summary ---
Author Organization [employer] Address [address] [place] [address] Care Team Providers Care Vaccinator Name Role Phone Lucio Hernando PRUITT Primary Care Provider [phone] Encounter Details Date Type Department Care Team ([facility] st Contact Info) Description 02/23/2025 Orders Only [facility] External Provider, [facility] Social History Tobacco Use Types Packs/Day Years Used Date Smoking Tobacco: Every Day Cigarettes 0.5 10 Started: 05/18/2022 Alcohol Use Standard Drinks/Week Comments Yes 0 [...] file Not on file Not on file documented as of this encounter Plan of Treatment Not on file documented as of this encounter Procedures Procedure Name Priority Date/Time Associated Diagnosis Comments XR ANKLE 3+ VIEWS LEFT Routine 02/23/2025 9:20 AM EDT documented in this encounter Results * XR Ankle 3+ Views Left (02/23/2025 9:20 AM EDT) Anatomical Region Laterality Modality Lower Extremities, Ankle Left Radiogr aphic Imaging 02/23/2025 9:20 AM EDT Narrative 02/23/2025 9:40 AM EDT [place] [address] XRay Report Signed Patient: Emily Solis MR#: [id number] : 1995 Acct:[id number] Age/Sex: 30 / F ADM Date: 02/23/25 Loc: HO.ED Attending Dr: Ordering Physician: Generic ED Physician Date of Service: 02/23/25 Procedure(s): XR ankle LT min 3V Accession Number(s): [id number] cc: Generic ED Physician; HERNANDO TARANGO NP [...] Charan Marroquin MD 02/23/2025 09:37 AM EDT RP Dictated By: Charan Marroquin MD Signed By: <Electronically signed by Charan Marroquin MD in OV> 02/23/25936 DD/ 9 TD/TT: 02/23/25924 Community Integration Specialist: Procedure Note Donotuseinterpreter, Image - 02/23/2025 [place] [address] XRay Report Signed Patient: Emily SolisMR#: [id number] : 1995Acct:[id number] Age/Sex: 30 FADM Date: 02/23/25 Loc: .ED Attending Dr: Ordering Physician: Generic ED Physician Date of Service: 02/23/25 Procedure(s): XR ankle LT min 3V Accession Number(s): [id number] cc: Generic ED Physician; HERNANDO TARANGO NP [...] in OV> 02/23/25936 DD/ 9 TD/TT: 02/23/25924 Community Integration Specialist: [facility] External Provider IMG XR PROCEDURES Edited Result - Final documented in this encounter Visit Diagnoses Not on filedocumented in this encounter Additional Health Concerns Assessment Noted Time PHQ-9 Depression Total Score: 1 11/10/19 25 9:53 AM EDT documented as of this encounter Care Teams Vaccinator Relationship Specialty Start Date End Date Hernando Tarango ANP [address] [place] [address] PCP - General Family Medicine 09/26/21 documented as of this encounter
== END 2025-02-23 10:54 | disposition home or self-care (01) ==
PROVIDERS: Emergency Provider Emergency Medicine; PCP Nurse Practitioner Primary Care
DX: S93.402A Sprain of unspecified ligament of left ankle, initial encounter (principal); X58.XXXA Exposure to other specified factors, initial encounter; Y93.9 Activity, unspecified; Y92.9 Unspecified place or not applicable
CPT/HCPCS: 73610; 99283

== ENCOUNTER → 2025-02-23 09:20 | Outpatient (BNV) | payer MEDICAID, SELFPAY | PROVIDERS: PCP Nurse Practitioner Primary Care; Visit Provider Radiology Diagnostic Radiology | DX: M25.572 Pain in left ankle and joints of left foot (principal); R22.42 Localized swelling, mass and lump, left lower limb | CPT/HCPCS: 73610 ==

== ENCOUNTER 2025-03-10 09:22 | Outpatient (AMB) | payer MEDICAID, SELFPAY ==
[2025-03-10 09:38] VITALS: BMI 44.1
--- NOTE | 2025-03-10 09:38 | A.OFFVIS_ITS ---
Vital Signs 03/10/25 09:38 Height 5 ft 5 in Weight 265 lb BMI 44.1 Intake Visit Reasons: ED follow up left ankle sprain Intake Note: Emily is a 30 year old female who presents to the office today as a new patient referred by [facility] for contusion of her left ankle. Pt states she tried to run and twisted her left ankle and heard a pop. X-rays completed in ED and raúl bandage was applied and they did not supply her with a boot or brace. Pt states she purchased a compression stalking and she has taken OTC pain medication and found no relief. She believes that walking up and down from the 4th floor in her apartment has not helped with her pain. Pain is located on her ankle and runs up through the back of her leg. Allergies No Known Allergies Allergy (Verified 03/10/25 09:38) [facility] ED follow up left ankle sprain: Details: 30-year-old female seen today for initial evaluation of the left foot ankle and leg pain. On 02/22/2025, the patient states she was running and twisted her ankle and felt a pop. She was seen in the emergency room and received x-rays which were noted to be normal. She was discharged with crutches and an Raúl bandage. Since then, the patient has been icing and resting her leg however she notes the pain and swelling has worsened. She is not taking anything for pain currently. She also notes a history of chronic left ankle injuries, stating she sprains her ankle at least once per year. She notes a ' accident' that occurred in 2019 where she thinks she fractured her ankle however she never sought medical care at that time. [facility] Surgical History Morbid obesity Hx of eye surgery Hx of appendectomy Hx laparoscopic cholecystectomy History of wisdom tooth extraction, class II edentulism Family History Father No problems noted. Mother DM (diabetes mellitus) Heart disease Stroke Depression Anxiety Sister No problems noted. Sister No problems noted. Sister No problems noted. Sister No problems noted. Sister No problems noted. Sister No problems noted. Brother No problems noted. Brother No problems noted. Brother No problems noted. Brother No problems noted. Brother Obese Chronic mental illness Son Obese Asthma Son Autism Social History Alcohol intake: current Alcohol intake frequency: holidays/special occasions only Cigarettes Per Day: 10 Substance Use Type: Marijuana Review of Systems Const All systems reviewed & are unremarkable except as noted in HPI and below Physical Exam Vital Signs: BMI result Body Mass Index 44.1 Extrem Other: *Bilateral Lower Extremity Focused Foot/Ankle Exam Vascular: DP/PT 2/4, CFT<3s to digits, TG warm to cool, moderate lateral and anterior left ankle edema, pedal hair present Derm: Mild Ecchymosis present to the left anterior ankle and lateral ankle, mild ecchymosis to the medial calf. Neuro: Protective sensation grossly intact to bilateral lower extremities. Negative Tinel sign to the intermediate dorsal cutaneous nerve. Msk: Left ankle: moderate pain on palpation along the left lateral ankle ligaments Mild Pain on palpation along the deltoid ligament left ankle No Pain on palpation along the syndesmosis left ankle Unable to perform anterior drawer sign of the left ankle due to guarding Mild tenderness on palpation over the anterior extensor tendons of the ankle to the level of the navicular. No pain to the Lisfranc ligament. Moderate tenderness on palpation of the medial aspect of the gastrocnemius muscle, no pain to the lateral calf. Moderate pain on maximum dorsiflexion of the ankle. No pain along the Achilles tendon, no talar defect. Plantar flexion strength 4+/5 intact. Deformities: No evidence of hammertoes, bunions, Charcot changes, or other structural abnormalities. Gait: Antalgic Office Procedures [facility]B Podiatry Dressing Details of Procedure: Procedure: Strapping of the foot/ankle Indication: Left lower extremity ankle sprain Description: A compression wrap was applied using 4in Raúl bandage with the ankle held in neutral position. Tolerance: Patient tolerated procedure well, no immediate complications. [id number] - Strapping of foot/ankle Procedure code (CPT) selection complete Results Reviewed Results Reviewed: Podiatry X-ray Read: 02/22/2025 X-ray left ankle 3 views (AP, Mortise, Lateral) reviewed which shows likely healed andujar A fibula fracture, no acute fractures, dislocations, osteochondral defects. Anatomic alignment of the tibiotalar joint. Bone density is within normal limits. Large plantar heel spur. No evidence of swelling, foreign body, or calcifications. I personally reviewed the imaging and my findings are listed above. Assessment & Plan Assessment & Plan (1) Left ankle sprain: Code(s): S93.402A - Sprain of unspecified ligament of left ankle, initial encounter Category: Medical Qualifiers: Encounter type: initial encounter Involved ligament of ankle: anterior talofibular ligament Qualified Code(s): S93.492A - Sprain of other ligament of left ankle, initial encounter Plan: * The patient has at least a grade 2 ankle sprain, injuring the lateral ankle ligaments and deltoid ligament. * The patient was instructed to rest, ice, compress and elevate. * An Raúl bandage was applied to the left lower extremity with the ankle held in neutral position. * The patient was recommended weight-bearing with cam boot which was dispensed today. The patient was instructed to take the supportive device off when sleeping. * It was explained that if pain and symptoms persist by the next visit, they may be referred for physical therapy or an MRI. * Follow up in 2 weeks. (2) Gastrocnemius muscle tear: Code(s): S86.119A - Strain of other muscle(s) and tendon(s) of posterior muscle group at lower leg level, unspecified leg, initial encounter Category: Medical Qualifiers: Encounter type: initial encounter Laterality: left Qualified Code(s): S86.112A - Strain of other muscle(s) and tendon(s) of posterior muscle group at lower leg level, left leg, initial encounter Plan: * Recommended neoprene calf sleeve. * Patient will require physical therapy. Orders: Orders AMB Podiatry Dressing Today S86.119A - Strain of other muscle(s) and tendon(s) of posterior muscle group at lower leg level, unspecified leg, initial encounter, S93.402A - Sprain of unspecified ligament of left ankle, initial encounter Coding Level of Care Code New Pt Level 3 (57677) Diagnoses Sprain of anterior talofibular ligament of left ankle, initial encounter S93.492A Encounter type: initial encounter Involved ligament of ankle: anterior talofibular ligament Rupture of left gastrocnemius tendon, initial encounter S86.112A Encounter type: initial encounter Laterality: left CPT Codes Podiatry Dressing - CPT: 81531 - Strapping of foot/ankle ([id number]) Time Spent (min) 35
--- OUTSIDE RECORDS SUMMARY | 2025-03-10 10:31 | XMS_ITS | Clinical Summary ---
Author Organization [employer] Address [address] [facility] 7t [place] [address] Care Team Providers Care Director Of Vital Statistics Name Role Phone Hernando Tarango EDMOND Primary Care Provider [phone] Allergies No known active allergies Medications cholestyramine (Questran) 4 g packetIndications :Postcholecystect sean diarrhea Take 1 packet (4 g) by mouth with breakfast, with lunch, and with evening meal. 90 packet 11 5 11/10/19 26 Active phentermine 15 MG capsuleIndication s:Class 3 severe obesity due to excess calories with body mass index (BMI) of 45.0 to 49.9 in adult, unspecified whether serious comorbidity present (HCC) Take 1 capsule (15 mg) by mouth before breakfast. 30 capsule 2 5 Active albuterol 108 (90 Base) MCG/ACT inhalerIndication s:Mild intermittent asthma without complication INHALE 2 PUFFS BY MOUTH EVERY 4 HOURS NEEDED FOR SHORTNESS OF BREATH OR WHEEZING 18 g 5 Active Active Problems Problem Noted Date Diagnosed Date [...] Encounters Date Type Department Care Team Description 03/10/[address] [address] Hernando Tarango ANP Appointment Request 03/03/2025 Patient Outreach [address] [address] Hernando Tarango ANP Care Coordination ([facility]/HARJEET Cotter- ADT Outreach-Declined to participate) 02/24/2025 Patient Outreach [address] [address] Hernando Tarango ANP Care Coordination ([facility]/HARJEET Rocha#1- ADT outreach-LV) 02/24/2025 Patient Outreach [address] [address] Hernando Tarango ANP Care Coordination ([facility]/ZEKE Stuart, Chart Review) 02/24/2025 Patient Outreach [address] [address] Hernando Tarango ANP Care Management ([facility] chart review) 02/24/2025 Patient Outreach [address] [address] Hernando Tarango ANP 02/23/2025 Orders Only [facility] External Provider, [facility] 02/10/[address] [address] Hernando Tarango ANP chart prep 02/09/[address] [address] Hernando Tarango ANP Nurse Triage 02/04/[address] [address] Hernando Tarango ANP No Show 02/03/[address] [address] Hernando Tarango ANP chart prep 02/03/[address] [address] Giselle Gross MD Mild intermittent asthma without complication 12/30/2024 Telephone [facility] [address] [place] [phone] Faby Lewis [place] 12/30/2024 Telephone [facility] [address] [place] [address] Faby Lewis [place] 12/26/2024 Orders Only GENERIC EXTERNAL DATA DEPARTMENT Provider, Generic External Data 12/22/[address] [address] Hernando Tarango ANP No Show (No show sick on site) 12/21/[address] [address] Stephanie Freeman [place] chart prep 12/21/[address] [address] Hernando Tarango ANP Nurse Triage from Last 3 Months Immunizations Immunization Administration [...] 11/09/2024 9:47 AM EDT Plan of Treatment Upcoming Encounters Date Type Department Care Team (Late st Contact Info) Description 04/29/2025 11:00 AM EST Office Visit [facility] MEDICINE [address] [place], [place] [phone] Hernando Tarango, ANP [address] [place], [place] [phone] Health Maintenance Due Date Last Done Comments Family Planning (PISQ) 01/14/2011 Hepatitis A Vaccines (1 of 2 - Risk 2-dose series) 01/14/2015 Pneumococcal Vaccine: Pediatrics (0 to 5 Years) and At-Risk Patients (6 to 49) Years (1 of 2 - PCV) 01/14/2015 Pap Smear 01/14/2017 COVID-19 Vaccine ( season) 2025 Influenza Vaccine (#1) 2025 2, 07/02/2014, 06/25/2013, Additional history exists SDOH Screening 11/02/2025 11/02/2024 Alcohol/Substance Use Screening 11/09/2025 11/09/2024 Depression Screening 11/09/2025 11/09/2024, 06/16/20 25 Disability Screening 11/09/2025 11/09/2024 Tobacco Screening [...] Completed 03/13/2022 Hepatitis C Screening Completed 03/13/2022 Meningococcal B Vaccine Aged Out No l [...] Comments XR ANKLE 3+ VIEWS LEFT Routine 5 9:[address] ABDOMEN PELVIS W [...] AM EDT Narrative 02/23/2025 9:40 AM EDT [place] [address] XRay Report Signed Patient: Emily Solis MR#: [id number] : 1995 Acct:[id number] Age/Sex: 30 / F ADM Date: 02/23/25 Loc: .ED Attending Dr: Ordering Physician: Generic ED Physician Date of Service: 02/23/25 Procedure(s): XR ankle LT min 3V Accession Number(s): [id number] cc: Generic ED Physician; HERNANDO TARANGO NP [...] in OV> 02/23/25936 DD/ 9 TD/TT: 02/23/25924 Lumber Estimator: Procedure Note Donotuseinterpreter, Image - 02/23/2025 [place] [address] XRay Report Signed Patient: Emily SolisMR#: [id number] : 1995Acct:[id number] Age/Sex: M Date: 02/23/25 Loc: HO.ED Attending Dr: Ordering Physician: Generic ED Physician Date of Service: 02/23/25 Procedure(s): XR ankle LT min 3V Accession Number(s): [id number] cc: Generic ED Physician; HERNANDO TARANGO NP [...] in OV> 02/23/25936 DD/ 9 TD/TT: 02/23/25924 Lumber Estimator: us [facility] External Provider IMG XR PROCEDURES Edited Result - Final * CT Abdomen Pelvis w/ Contrast (12/27/2024 12:24 AM EDT) Anatomical Region Laterality Modality Body, Pelvis, Abdomen Computed T omography 12/27/2024 12:2 4 AM EDT Narrative 12/27/2024 12:26 AM EDT [address] [address] [address] Scan Report Signed Patient: Emily Solis MR#: [id number] : 1995 Acct:[id number] Age/Sex: 29 / F ADM Date: 12/26/24 Loc: HO.ED Attending Dr: Ordering Physician: Carrie García Date of Service: 12/26/24 Procedure(s): CT abdomen pelvis w IV con Accession Number(s): [id number] cc: Carrie García; HERNANDO TARANGO NP Report Number: [id number]: Total DLP = 947.00 mGy-cm CLINICAL HISTORY: [...] MD in OV> 12/27/2424 DD/ TD/TT: 12/27/2423 Lumber Estimator: Procedure Note Donotuseinterpreter, Image - 12/27/[address] [address] [address] Scan Report Signed Patient: Emily SolisMR#: [id number] : 1995Acct:[id number] Age/Sex: 29 / FADM Date: 12/26/24 Loc: HO.ED Attending Dr: Ordering Physician: Carrie García Date of Service: 12/26/24 Procedure(s): CT abdomen pelvis w IV con Accession Number(s): [id number] cc: Carrie García; HERNANDO TARANGO NP Report Number: [id number]: Total DLP = 947.00 mGy-cm CLINICAL HISTORY: [...] signed by Giles Rodriguez MD in OV> 12/27/24 0025 DD/ TD/TT: 12/27/24 0024 Lumber Estimator: [facility] External Provider IMG CT PROCEDURES Final Result * (ABNORMAL) Urinalysis, Complete, with Reflex to Culture (12/26/2024 9:08 PM EDT) Color Urine Dark Yellow [facility] Appearance Urine Cloudy [facility] PH 6.0 5.0 - 9.0 [facility] Glucose Urine UA Negative Negative mg/dL [facility] Urine Blood Negative Negative [facility] Specific [place] - Urine >=1.030(H) 1.005 - 1.025 [facility] Urine Protein 100 (2+)(A) Neg-Trace mg/dL [facility] Urine Ketones 80 Negative mg/dL [facility] Nitrite Urine Positive(A) Negative [facility] Leukocyte Esterase Urine Small (1+)(A) Negative [facility] RBC Urine 3-5(A) 0 - 2 /HPF [facility] Urine WBC 0-5 0 - 5 /HPF [facility] Urine Squamous Epithelial Cell 11-20 0 - 2 /HPF [facility] Urine Bacteria 4+ None Seen [facility] Hyaline Casts, Urine 3-5 0 - 2 /LPF [facility] 12/26/2024 9:08 PM EDT 12/26/2024 9:11 PM EDT Narrative [facility] - 12/26/2024 9:34 PM EDT [id number], Clean Catch Generic External Data Provider LAB URINE ORDERAB LES Final Result Performing Organization Address [facility] Co de Phone Number [facility] [address] [place] [phone] * Culture, Urine, Routine (12/26/2024 9:08 PM EDT) Urine Urine specimen obtained by clean catch procedure / Unknown 12/26/2024 9:08 PM EDT 12/26/2024 9:35 PM EDT Comment:UACC Narrative [facility] - 12/28/2024 8:16 AM EDT Urine Culture Report Result Urine Culture > 100,000 cfu/ml Urine Culture Mixed bacterial reynaldo characteristic of Urine Culture urogenital contamination. Specimen Source: Urine clean catch Generic External Data Provider LAB MICROBIOLOGY - GENERAL ORDERABLES Final Result Performing Organization Address [facility]/ZIP Co de Phone Number [facility] [address] [place] [phone] * (ABNORMAL) CBC auto differential (12/26/2024 7:49 PM EDT) White Blood Count 15.2(H) 4.8 - 10.8 X10*3/uL [facility] Red Blood Count 4.27 4.20 - 5.50 X10*6/uL [facility] Hemoglobin 14.5 12.0 - 16.0 g/dl [facility] Hematocrit 40.3 37.0 - 47.0 % [facility] Mean Corpuscular Volume 94.4 80.0 - 98.0 [facility] Mean Corpuscular Hemoglobin 34.0(H) 27.0 - 33.0 pg [facility] Mean Corpuscular HGB Conc 36.0(H) 31.0 - 35.0 g/dl [facility] Red Cell Distribution Width 14.0 11.0 - 16.0 % [facility] Platelet Count 312 160 - 400 X10*3/uL [facility] Mean Platelet Volume 8.9(L) 9.4 - 12.3 [facility] Neutrophils Percent Auto 79.5(H) 45 - 73 % [facility] Imm Gran Pct Auto 0.5(H) 0.0 - 0.4 % [facility] Lymphocytes Percent Auto 14.0(L) 20 - 40 % [facility] Monocytes Percent Auto 4.9 2 - 11 % [facility] Eosinophils Percent Auto 0.8 0 - 4 % [facility] Basophils Percent Auto 0.3 0 - 2 % [facility] NRBC Pct Auto 0.0 0.0 - 0.2 /100WBC [facility] Neutrophils Absolute Auto 12.1(H) 2.0 - 8.3 x10*3/uL [facility] Imm Gran Abs Auto 0.07(H) 0.00 - 0.03 X10*3/uL [facility] Lymphocytes Absolute Auto 2.1 1.2 - 4.9 X10*3/uL [facility] Monocytes Absolute Auto 0.7 0.1 - 1.2 X10*3/uL [facility] Eosinophils Absolute Auto 0.1 0.0 - 0.4 X10*3/uL [facility] Basophils Absolute Auto 0.1 0.0 - 0.2 X10*3/uL [facility] NRBC Abs Auto 0.000 0.0 - 0.012 X10*3/uL [facility] 12/26/2024 7:49 PM EDT 12/26/2024 7:53 PM EDT Generic External Data Provider LAB BLOOD ORDERAB LES Final Result Performing Organization Address City/[facility]/ZIP Co de Phone Number [facility] [address] [place] [phone] * hCG, Total, Quantitative (12/26/2024 7:49 PM EDT) HCG Quantitative <2 mIU/mL [facility] Comment:Weeks post LMP Appro ximate hCG(Last Menstrual Period) Range (mIU/ml)3 - 4 weeks 9 - 1304 - 5 weeks 75 - 2,6005 - 6 weeks 850 - 20,8006 - 7 weeks 4000 - 100,2007 - 12 weeks 11,500 - 289,23000 - 16 weeks 18,300 - 137,83482 - 29 weeks (2nd trimester) 1,400 - 53,02146 - 41 weeks (3rd trimester) 940 - [...] ORDERAB LES Final Result Performing Organization Address City/[facility]/ZIP Co de Phone Number [facility] [address] [place] [phone] * Lipase (12/26/2024 7:49 PM EDT) Pathologist [facility] Lipase 14 8 - 78 U/L [facility] 12/26/2024 7:49 PM EDT 12/26/2024 7:53 PM EDT us Generic External Data Provider LAB BLOOD ORDERAB LES Final Result [facility] [address] [place], [place] [phone] * (ABNORMAL) Comprehensive Metabolic Panel (12/26/2024 7:49 PM EDT) Sodium 139 135 - 145 mmol/L [facility] Potassium 3.5 3.3 - 5.1 mmol/L [facility] Chloride 101 96 - 108 mmol/L [facility] Carbon Dioxide 26 22 - 29 mmol/L [facility] Anion Gap 16 12 - 20 [facility] Urea Nitrogen (BUN) 8(L) 9 - 16 mg/dL [facility] Creatinine, Serum 0.86 0.5 - 1.4 mg/dL [facility] Creatinine Clr Calc Pharmacy 126.1 [facility] Comment:Provided height and weight: 165.1 cm,119.7 kg.eGFR (calculated from the MDRD study equation) and eCrCl(calculated from the Cockcroft-Gault equation) are based ondifferent parameters and may not yield comparable results.If eCrCl result is absurd, please check patient'sheight/weight. Estimated Glomerular Filt Rate >60 [facility] Comment:Chronic Kidney Disea se: Estimated GFR < 60 mL/min/1.43o1Emxdtu Kidney Disease: Estimated GFR < 15 mL/min/1.73m2 Glucose 113 60 - 115 mg/dL [facility] Calcium 9.7 8.4 - 10.2 mg/dL [facility] Bilirubin, Total 1.3(H) 0.0 - 1.0 mg/dL [facility] Aspartate Amino Transferase 39(H) 5 - 31 U/L [facility] Alanine Aminotransferase 36(H) 0 - 31 U/L [facility] Total Protein 8.5(H) 6.5 - 8.0 g/dL [facility] Albumin Level 4.8 3.5 - 5.0 g/dL [facility] Alkaline Phosphatase 128(H) 39 - 117 U/L [facility] 12/26/2024 7:49 PM EDT 12/26/2024 7:53 PM EDT us Generic External Data Provider LAB BLOOD ORDERAB LES Final Result Performing Organization Address City/[facility]/ZIP Co de Phone Number [facility] [address] [place] [phone] [phone] * HEPATITIS C AB W/REFL TO [...] a test for HCV RNA (test code 41444) is suggested. For additional information please refer to http://education.[employer].OONi/faq/VXC91q1 (This link is being provided for informational/ educational purposes only.) 03/13/2022 11:3 3 AM EDT us Hernando Tarango ANP HISTORICAL/NON ORDERABLE LABS Fi nal Result Performing Organization Address City/[facility]/ZIP Co de Phone Number [facility] * HIV 1/2 ANTIGEN/ANTIBODY,FOURTH GENERATION W/RFL (03/13/2022 11:33 AM EDT) HIV-1/2 ANTIGEN AND ANTIBODIES, 4TH GENERATION W/ REFLEX NON-REACT CAR NON-REACT CAR [facility] Comment: HIV-1 antigen and [...] purpose. For additional information please refer to http://[employer].Rescale/faq/PNL757 (This link is being provided for informational/ educational purposes only.) The performance of this assay has not been clinically validated in patients less than 2 years old. 03/13/2022 11:3 3 AM EDT [facility] LAB BLOOD ORDERABLES Final Resul t [facility] * (ABNORMAL) LIPID PANEL, [...] factors. LDL-C is now calculated using the Rod-June calculation, which is a validated novel method providing better accuracy than the Friedewald equation in the estimation of LDL-C. Rod SANDOVAL et al. RUDOLPH. 2013;310(19): 3175-9793 (http://education.[employer].OONi/faq/UHM915) Non-HDL Cholesterol 156(H) <130 mg/dL (calc) [facility] Comment: For patients with diabetes plus 1 major ASCVD risk factor, treating to a non-HDL-C goal of <100 mg/dL (LDL-C of <70 mg/dL) is considered a therapeutic option. Triglycerides 167(H) <150 mg/dL [facility] 03/13/2022 11:3 3 AM EDT Hernando PRUITT LAB BLOOD ORDERABLES Final Resul t [facility] from Last 3 Months or Most Recently Relevant to Health Maintenance Insurance [address] [place], [place] [address]Unbounce C3 Care Teams Director Of Vital Statistics Relationship Specialty Start Date End Date Hernando Tarango ANP [address] [place] [phone] PCP - General Family Medicine 09/26/21
--- OUTSIDE RECORDS SUMMARY | 2025-03-10 10:31 | XMS_ITS | Encounter Summary ---
Author Organization [employer] Address [address] [facility] 7 [place] [address] Care Team Providers Care Punch Press Feeder Name Role Phone Kayla Valdes Primary Care Provider [phone] Reason for Visit * Reason Onset Date Comments Appointment Request 03/10/2025 Encounter Details Date Type Department Care Team ([facility] Contact Info) Description 03/10/2025 Telephone [facility] MEDICINE [address] [place], [place] [phone] Kayla Valdes ANP [address] [place] [address] Appointment Request Social History Tobacco Use Types Packs/Day Years [...] on file documented as of this encounter Miscellaneous Notes * Telephone Encounter - Ellis Ordaz - 03/10/2025 9:14 AM EDT Tc from pt requesting an sooner apot with PCP due to switching medication. Pt states she is having side affects with the medication phentermine 15 MG capsule [facility] offered 04/29/2025. Pt would like a sooner apt but still took that one that was offered. Contact pt at [phone]. documented in this encounter Plan of Treatment Upcoming Encounters Date Type Department Care Team (Late st Contact Info) Description 04/29/2025 11:00 AM EST Office Visit [facility] MEDICINE [address] [place] [address] Kayla Valdes ANP [address] [place] [address] documented as of this encounter Visit Diagnoses Not on filedocumented in this encounter Additional Health Concerns Assessment Noted Time PHQ-9 Depression Total Score: 1 11/10/19 25 9:53 AM EDT documented as of this encounter Care Teams Punch Press Feeder Relationship Specialty Start Date End Date Kayla Valdes ANP [address] [place] [address] PCP - General Family Medicine 09/26/21 documented as of this encounter
== END 2025-03-10 10:03 | disposition home or self-care (01) ==
LOC: HO.HPODS 09:22
PROVIDERS: PCP Nurse Practitioner Primary Care; Visit Provider Student in an Organized Health Care Education/Training Program
DX: S93.492A Sprain of other ligament of left ankle, initial encounter (principal); S86.112A Strain of other muscle(s) and tendon(s) of posterior muscle group at lower leg level, left leg, initial encounter
CPT/HCPCS: 29540; 99203

== ENCOUNTER → 2025-03-10 09:22 | Outpatient (BNVA) | payer MEDICAID, SELFPAY | PROVIDERS: PCP Nurse Practitioner Primary Care; Visit Provider Student in an Organized Health Care Education/Training Program | DX: S93.492A Sprain of other ligament of left ankle, initial encounter (principal); S86.112A Strain of other muscle(s) and tendon(s) of posterior muscle group at lower leg level, left leg, initial encounter; X50.1XXA Overexertion from prolonged static or awkward postures, initial encounter; Y93.02 Activity, running; Y92.9 Unspecified place or not applicable; Y99.9 Unspecified external cause status | CPT/HCPCS: 29540; 99202 ==

== ENCOUNTER 2025-03-16 12:19 | Outpatient (REF) | payer MEDICAID, SELFPAY ==
--- OUTSIDE RECORDS SUMMARY | 2025-03-16 11:15 | XMS_ITS | Encounter Summary ---
Author Organization [employer] Address [address] [place] [address] [place], [place] [address] Care Team Providers Care Terra Cotta Roofer Helper Name Role Phone Kayla Valdes Primary Care Provider [phone] Encounter Details Date Type Department Care Team ([facility] st Contact Info) Description 03/16/2025 11:15 AM EDT Office Visit [facility] MEDICINE [address] [place], [place] [phone] Kayla Valdes ANP [address] [place] [address] Class 3 severe obesity with body mass index (BMI) of 45.0 to 49.9 in adult, unspecified obesity type, unspecified whether serious comorbidity present (HCC) (Primary Dx); Acute left ankle pain; Cigarette nicotine dependence without complication; Routine screening for STI (sexually transmitted infection); Dietary counseling; Exercise counseling; Irregular menses; Sprain of left ankle, unspecified ligament, subsequent encounter Social History Tobacco Use Types Packs/Day Years Used Date Smoking Tobacco: Every Day Cigarettes 0.5 10 Started: 05/18/2022 Tobacco Cessation:Ready to Q uit: Not Asked; Counseling Given: Not Answered Alcohol Use Standard Drinks/Week Comments Yes 0 [...] on file documented as of this encounter Last Filed Vital Signs Vital Sign Reading Time Taken Comments Blood Pressure 120/80 03/16/2025 11:16 AM EDT Pulse 90 03/16/2025 11:16 AM EDT Temperature 36.6 C (97.8 F) 03/16/2025 11:16 AM EDT Respiratory Rate 15 03/16/2025 11:16 AM EDT Oxygen Saturation 98% 03/16/2025 11:16 AM EDT Inhaled Oxygen Concentration - - Weight 122 kg (270 lb) 03/16/2025 11:16 AM EDT Height 162.6 cm (5' 4 ) 03/16/2025 11:16 AM EDT Body Mass Index 46.35 03/16/2025 11:16 AM EDT documented in this encounter Patient Instructions * Patient Instructions* EDMOND Castellano - 03/16/2025 11:15 AM EDT Based on our discussion, I have outlined the following instructions for you: - Take Wellbutrin as prescribed to help with weight management and quitting smoking. If you tolerate it well, your dose may be consolidated into once daily dosing 150mg XR. - Be aware that Wellbutrin may cause trouble sleeping, especially in the first few weeks. If you have worsening anxiety or other symptoms, please let us know. - You can self-refer to a weight product management analyst to discuss other medication options. - Use nicotine gum as you have done before to help quit smoking. - Choose a date to quit smoking and try not to buy cigarettes. - You can use nicotine patches if you need extra help. - Chew sugar-free gum and eat healthy snacks to avoid replacing cigarettes with sugary foods. - Keep your orthopedic appointments and continue with any planned imaging, including your MRI. - No new treatments are being started at this time. - A urine test has been ordered for you. - Blood tests for HIV and syphilis have been ordered. - You have been given a vaginal swab to test for gonorrhea and chlamydia. - If your test is negative, more blood tests will be done to check your thyroid and for anemia. - Use non-hormonal control methods, such as tracking your cycle and using condoms - Continue a high fiber, low-calorie, high-protein diet and keep up with regular exercise and gym visits. Thank you again for your visit, and we look forward to supporting you in your journey to better health. documented in this encounter Plan of Treatment Upcoming Encounters Date Type Department Care Team ([facility] Contact Info) Description 05/03/2025 11:00 AM EST Office Visit [facility] MEDICINE [address] [place] [address] Kayla Valdes ANP [address] [place] [address] Scheduled Orders Name Type Priority Associated Diagnoses Orde r Schedule Chlamydia/N. Gonorrhoeae RNA, TMA, Vagina Microbiology Routine Routine screening for STI (sexually transmitted infection) Ordered: 03/16/2025 documented as of this encounter Procedures Procedure Name Priority Date/Time Associated Diagnosis Comments TSH W/REFLEX TO FT4 Routine 03/16/2025 1 2:40 PM EDT Irregular menses POCT , URINE Routine 03/16/2025 11:59 AM EDT Irregular menses documented in this encounter Results * TSH W/Reflex to FT4 (03/16/2025 12:40 PM EDT) TSH reflex Free T4 1.91 0.32 - 4.0 uIU/mL [facility] Blood Venous blood specimen / Unknown 03/16/2025 12:40 PM EDT 03/16/2025 1:11 PM EDT us Kayla Valdes ANP LAB BLOOD ORDERABLES Final Resul t [facility] [address] [place] [phone] * POCT Urine (03/16/2025 11:59 AM EDT) Preg Test, Ur Negative Negative, Indeterminate, None Detected, Invalid, Specimen unsatisfactory for evaluation, Weakly Positive, 2+ QC Media Lot # [id number] Lot# Expiration Date [id number] Urine 03/16/2025 11:5 9 AM EDT us Kayla Valdes ANP POINT OF CARE TEST ENTER/EDIT OR DERABLES Final Result documented in this encounter Visit Diagnoses Diagnosis Class 3 severe obesity with body mass index (BMI) of 45.0 to 49.9 in adult, unspecified obesity type, unspecified whether serious comorbidity present (HCC)- Primary Acute left ankle pain Cigarette nicotine dependence without complication Routine screening for STI (sexually transmitted infection) Screening examination for venereal disease Dietary counseling Dietary surveillance and counseling Exercise counseling Irregular menses Irregular menstrual cycle Sprain of left ankle, unspecified ligament, subsequent encounter documented in this encounter Additional Health Concerns Assessment Noted Time PHQ-9 Depression Total Score: 1 11/10/19 25 9:53 AM EDT documented as of this encounter Care Teams Terra Cotta Roofer Helper Relationship Specialty Start Date End Date Kayla Valdes ANP [address] [place] [address] PCP - General Family Medicine 09/26/21 documented as of this encounter
--- OUTSIDE RECORDS SUMMARY | 2025-03-16 15:51 | XMS_ITS | Encounter Summary ---
Author Organization [employer] Address [address] [facility] 7 [place] [address] Care Team Providers Care Title Coordinator Name Role Phone Lucio Kayla PRUITT Primary Care Provider [phone] Encounter Details Date Type Department Care Team (Latest Contact Info) Description 03/16/2025 Travel Social History Tobacco Use Types Packs/Day Years [...] as of this encounter Plan of Treatment Upcoming Encounters Date Type Department Care Team (Late st Contact Info) Description 05/03/2025 11:00 AM EST Office Visit [facility] [address] [place] [address] Kayla Valdes ANP [address] [place] [address] documented as of this encounter Visit Diagnoses Not on filedocumented in this encounter Additional Health Concerns Assessment Noted Time PHQ-9 Depression Total Score: 1 11/10/19 25 9:53 AM EDT documented as of this encounter Care Teams Title Coordinator Relationship Specialty Start Date End Date Kayla Valdes ANP [address] [place] [address] PCP - General Family Medicine 09/26/21 documented as of this encounter
--- OUTSIDE RECORDS SUMMARY | 2025-03-16 15:51 | XMS_ITS | Encounter Summary ---
Author Organization [employer] Address [address] [place] [address] Care Team Providers Care Tank Filler Name Role Phone Kayla Valdes Primary Care Provider [phone] Reason for Visit * Reason Onset Date Comments chart prep 03/15/2025 Encounter Details Date Type Department Care Team ([facility] Contact Info) Description 03/15/2025 Telephone [facility] [address] [place] [address] Kayla Valdes ANP [address] [place] [address] chart prep Social History Tobacco Use Types Packs/Day Years [...] the past 12 months, has t he [employer], gas, oil or water company threatened to [...] encounter Miscellaneous Notes * Telephone Encounter - Annette Ross MA - 03/15/2025 9:00 AM EDT Chart Prep Labs: not done Images: done Referrals: complete Vaccines due: Covid, Flu, PCV20, and Hep A Screenings: pap smear Overdue care gaps: Not applicable documented in this encounter Plan of Treatment Upcoming Encounters Date Type Department Care Team (Late st Contact Info) Description 05/03/2025 11:00 AM EST Office Visit [facility] [address] [place] [address] Kayla Valdes ANP [address] [place] [address] documented as of this encounter Visit Diagnoses Not on filedocumented in this encounter Additional Health Concerns Assessment Noted Time PHQ-9 Depression Total Score: 1 11/10/19 25 9:53 AM EDT documented as of this encounter Care Teams Tank Filler Relationship Specialty Start Date End Date Kayla Valdes ANP [address] [place] [address] PCP - General Family Medicine 09/26/21 documented as of this encounter
--- OUTSIDE RECORDS SUMMARY | 2025-03-16 15:51 | XMS_ITS | Encounter Summary ---
Author Organization [employer] Address [address] [place] [address] Care Team Providers Care Contact Center Professional Name Role Phone Kayla Valdes Primary Care Provider [phone] Reason for Visit * Reason Onset Date Comments Appointment Request 03/10/2025 Encounter Details Date Type Department Care Team ([facility] Contact Info) Description 03/10/2025 Telephone [facility] MED[facility]INE [address] [place] [address] Kayla Valdes ANP [address] [place] [address] Appointment Request Social History Tobacco Use Types [...] encounter Miscellaneous Notes * Telephone Encounter - Nora Rodriguez RN - 03/11/2025 11:42 AM EDT Telephone call returned to pt regarding below message. Pt reports that she was taking phentermine for weight loss when in December or January she developed side effects of dizziness, shortness of breath, insomnia, and has 2 syncopal episodes. Most recent syncopal episode, she fractured her ankle. She reports ankle is still in a boot. She has since discontinued the phentermine and does not currently have any side effects. She has missed a couple of appts with PCP for this but would like to see him SARAH to discuss. Booked for 03/16/25 with PCP. Pt states will make sure she comes to this appointment. Informed of NTTS in case she has any concerns when we are closed. * Telephone Encounter - Ellis Ordaz - 03/10/2025 9:14 AM EDT Tc from pt requesting an sooner apot with PCP due to switching medication. Pt states she is having side affects with the medication phentermine 15 MG capsule Pen And Pencil Repairer offered 04/29/2025. Pt would like a sooner apt but still took that one that was offered. Contact pt at [phone]. documented in this encounter Plan of Treatment Upcoming Encounters Date Type Department Care Team (Late st Contact Info) Description 05/03/2025 11:00 AM EST Office Visit [facility] MEDICINE [address] [place] [phone] Kayla Valdes ANP [address] [place] [address] documented as of this encounter Visit Diagnoses Not on filedocumented in this encounter Additional Health Concerns Assessment Noted Time PHQ-9 Depression Total Score: 1 11/10/19 25 9:53 AM EDT documented as of this encounter Care Teams Contact Center Professional Relationship Specialty Start Date End Date Kayla Valdes ANP [address] [place] [address] PCP - General Family Medicine 09/26/21 documented as of this encounter
--- OUTSIDE RECORDS SUMMARY | 2025-03-16 15:51 | XMS_ITS | Clinical Summary ---
Author Organization [employer] Address [address] [place] [address] 7 [place] [address] Care Team Providers Care Line Construction Engineer Name Role Phone Lucio Hernando PRUITT Primary Care Provider [phone] Allergies No known active allergies Medications cholestyramine [...] BREATH OR WHEEZING 18 g 5 Active buPROPion (Wellbutrin) 75 MG tabletIndications :Cigarette nicotine dependence without complication Take 1 tablet (75 mg) by mouth 2 times daily. 60 tablet 1 5 Active Active Problems Problem Noted Date [...] Encounters Date Type Department Care Team Description 03/16/2025 11:15 AM EDT Office Visit [address] [address] Hernando Tarango ANP Class 3 severe obesity with body mass index (BMI) of 45.0 to 49.9 in adult, unspecified obesity type, unspecified whether serious comorbidity present (HCC) (Primary Dx); Acute left ankle pain; Cigarette nicotine dependence without complication; Routine screening for STI (sexually transmitted infection); Dietary counseling; Exercise counseling; Irregular menses; Sprain of left ankle, unspecified ligament, subsequent encounter 03/16/2025 Results Follow-Up [address] [address] Hernando Tarango ANP TSH W/Reflex to FT4 03/16/2025 Travel 03/15/[address] [address] Hernando Tarango ANP chart prep 03/10/[address] [phone] Hernando Tarango ANP Appointment Request 03/03/2025 Patient Outreach [address] [address] Hernando Tarango ANP Care Coordination ([facility] HARJEET Corona- ADT Outreach-Declined to participate) 02/24/2025 Patient Outreach [address] [phone] Hernando Tarango ANP Care Coordination ([facility] Debbie Stuart, TC#1- ADT outreach-LVM) 02/24/2025 Patient Outreach [address] [address] Hernando Tarango ANP Care Coordination ([facility] Debbie Stuart, Chart Review) 02/24/2025 Patient Outreach [address] [address] Hernando Tarango ANP Care Management ([facility] chart review) 02/24/2025 Patient Outreach [address] [address] Hernando Tarango ANP 02/23/2025 Orders Only [facility] External Provider, [facility] 02/10/[address] [address] Hernando Tarango ANP chart prep 02/09/[address] [address] Hernando Taranog ANP Nurse Triage 02/04/[address] [address] Hernando Tarango ANP No Show 02/03/[address] [address] Hernando Tarango ANP chart prep 02/03/[address] [address] Giselle Gross MD Mild intermittent asthma without complication 12/30/2024 Telephone [facility] [address] [place] [address] Faby Lewis MA 12/30/2024 Telephone [facility] [address] [place] [address] Faby Lewis MA 12/26/2024 Orders Only GENERIC EXTERNAL DATA DEPARTMENT Provider, Generic External Data 12/22/[address] [address] Hernando Tarnago ANP No Show (No show sick on site) 12/21/2024 [address] [place] [address] Stephanie Freeman MA chart prep 12/21/2024 Telephone [facility] [address] [place] [address] Hernando Tarango ANP Nurse Triage from Last [...] Mass Index 46.35 03/16/2025 11:16 AM EDT Plan of Treatment Upcoming Encounters Date Type Department Care Team (Late st Contact Info) Description 05/03/2025 11:00 AM EST Office Visit [facility] [address] [place], [place] [phone] Hernando Tarango ANP [address] [place] [address] Health Maintenance Due Date Last Done Comments Family Planning (PISQ) 01/14/2011 Hepatitis A Vaccines (1 of 2 - Risk 2-dose series) 01/14/2015 Pneumococcal Vaccine: Pediatrics (0 to 5 Years) and At-Risk Patients (6 to 49) Years (1 of 2 - PCV) 01/14/2015 Pap Smear 01/14/2017 COVID-19 Vaccine ( season) 2025 Influenza Vaccine (#1) 2025 , 07/02/2014, 06/25/2013, Additional history exists SDOH Screening 11/02/2025 11/02/2024 Alcohol/Substance Use Screening 11/09/2025 11/09/2024 Depression Screening 11/09/2025 11/09/2024, 11/10/19 Disability Screening 11/09/2025 11/09/2024 Tobacco Screening 03/16/2026 03/16/2025 Lipid Panel 03/13/2027 03/13/2022 DTaP/Tdap/Td Vaccines (8 [...] Routine 03/16/2025 11:59 AM EDT Irregular menses XR ANKLE 3+ VIEWS LEFT Routine 9:20 [...] Recently Relevant to Health Maintenance Results * TSH W/Reflex to FT4 (03/16/2025 12:40 PM EDT) TSH reflex Free T4 1.91 0.32 - 4.0 uIU/mL [facility] Blood Venous blood specimen / Unknown 03/16/2025 12:40 PM EDT 03/16/2025 1:11 PM EDT us Hernando Tarango ANP LAB BLOOD ORDERABLES Final Resul t [facility] [address] [place] [phone] * POCT Urine (03/16/2025 11:59 AM EDT) Preg Test, Ur Negative Negative, Indeterminate, None Detected, Invalid, Specimen unsatisfactory for evaluation, Weakly Positive, 2+ QC Media Lot # [id number] Lot# Expiration Date [id number] Urine 03/16/2025 11:5 9 AM EDT us Hernando Tarango ANP POINT OF CARE TEST ENTER/EDIT OR DERABLES Final Result * XR Ankle 3+ Views Left (02/23/2025 9:20 AM EDT) Anatomical Region Laterality Modality Lower Extremities, Ankle Left Radiogr aphic Imaging 02/23/2025 9:20 AM EDT Narrative 02/23/2025 9:40 AM EDT [address] [address] XRay Report Signed Patient: Emily Solis MR#: [id number] : 1995 Acct:[id number] Age/Sex: 30 / F ADM Date: 02/23/25 Loc: HO.ED Attending Dr: Ordering Physician: Generic ED Physician Date of Service: 02/23/25 Procedure(s): XR ankle LT min 3V Accession Number(s): [id number] cc: Generic ED Physician; HERNANDO TARANGO NP [...] in OV> 02/23/25936 DD/ 9 TD/TT: 02/23/25924 Rn Cardiology: Procedure Note Donotuseinterpreter, Image - 02/23/2025 [place] [address] XRay Report Signed Patient: Emily Solis#: [id number] : 1995Acct:[id number] Age/Sex: 30 FADM Date: 02/23/25 Loc: HO.ED Attending Dr: Ordering Physician: Generic ED Physician Date of Service: 02/23/25 Procedure(s): XR ankle LT min 3V Accession Number(s): [id number] cc: Generic ED Physician; HERNANDO TARANGO NP [...] in OV> 02/23/25936 DD/ 9 TD/TT: 02/23/25924 Rn Cardiology: [facility] External Provider IMG XR PROCEDURES Edited Result - Final * CT Abdomen Pelvis w/ Contrast (12/27/2024 12:24 AM EDT) Anatomical Region Laterality Modality Body, Pelvis, Abdomen Computed T omography 12/27/2024 12:2 4 AM EDT Narrative 12/27/2024 12:26 AM EDT [place] [address] CT Scan Report Signed Patient: Emily Solis MR#: [id number] : 1995 Acct:[id number] Age/Sex: 29 / F ADM Date: 12/26/24 Loc: .ED Attending Dr: Ordering Physician: Carrie García Date of Service: 12/26/24 Procedure(s): CT abdomen pelvis w IV con Accession Number(s): [id number] cc: Carrie García; HERNANDO TARANGO NP Report Number: [id number]: Total DLP = 947.00 mGy-cm CLINICAL HISTORY: [...] MD in OV> 12/27/2424 DD/ TD/TT: 12/27/2423 Rn Cardiology: Procedure Note Donotuseinterpreter, Image - 12/27/[address] [address] [address] Scan Report Signed Patient: Emily SolisMR#: [id number] : 1995Acct:[id number] Age/Sex: 29 FADM Date: 12/26/24 Loc: HO.ED Attending Dr: Ordering Physician: Carrie García Date of Service: 12/26/24 Procedure(s): CT abdomen pelvis w IV con Accession Number(s): [id number] cc: Carrie García; HERNANDO TARANGO NP Report Number: [id number]: Total DLP = 947.00 mGy-cm CLINICAL HISTORY: [...] MD in OV> 12/27/2424 DD/ TD/TT: 12/27/2423 Rn Cardiology: [facility] External Provider IMG CT PROCEDURES Final Result * (ABNORMAL) Urinalysis, Complete, with Reflex to Culture (12/26/2024 9:08 PM EDT) Color Urine Dark Yellow [facility] Appearance Urine Cloudy [facility] PH 6.0 5.0 - 9.0 [facility] Glucose Urine UA Negative Negative mg/dL [facility] Urine Blood Negative Negative [facility] Specific [place] - Urine >=1.030(H) 1.005 - 1.025 [facility] Urine Protein 100 (2+)(A) Neg-Trace mg/dL [facility] Urine Ketones 80 Negative mg/dL [facility] Nitrite Urine Positive(A) Negative [facility] Leukocyte Esterase Urine Small (1+)(A) Negative [facility] RBC Urine 3-5(A) 0 - 2 /HPF [facility] Urine WBC 0-5 0 - 5 /HPF [facility] Urine Squamous Epithelial Cell 11-20 0 - 2 /HPF [facility] Urine Bacteria 4+ None Seen [facility] Hyaline Casts, Urine 3-5 0 - 2 /LPF [facility] 12/26/2024 9:08 PM EDT 12/26/2024 9:11 PM EDT Narrative [facility] - 12/26/2024 9:34 PM EDT [id number], Clean Catch Generic External Data Provider LAB URINE ORDERAB LES Final Result [facility] [address] [place] [phone] * Culture, Urine, Routine (12/26/2024 9:08 PM EDT) Urine Urine specimen obtained by clean catch procedure / Unknown 12/26/2024 9:08 PM EDT 12/26/2024 9:35 PM EDT Comment:UACC Narrative [facility] - 12/28/2024 8:16 AM EDT Urine Culture Report Result Urine Culture > 100,000 cfu/ml Urine Culture Mixed bacterial reynaldo characteristic of Urine Culture urogenital contamination. Specimen Source: Urine clean catch us Generic External Data Provider LAB MICROBIOLOGY - GENERAL ORDERABLES Final Result [facility] [address] [place] [address] [phone] * (ABNORMAL) CBC auto differential (12/26/2024 7:49 PM EDT) White Blood Count 15.2(H) 4.8 - 10.8 X10*3/uL [facility] Red Blood Count 4.27 4.20 - 5.50 X10*6/uL [facility] Hemoglobin 14.5 12.0 - 16.0 g/dl [facility] Hematocrit 40.3 37.0 - 47.0 % [facility] Mean Corpuscular Volume 94.4 80.0 - 98.0 fL [facility] Mean Corpuscular Hemoglobin 34.0(H) 27.0 - 33.0 pg [facility] Mean Corpuscular HGB Conc 36.0(H) 31.0 - 35.0 g/dl [facility] Red Cell Distribution Width 14.0 11.0 - 16.0 % [facility] Platelet Count 312 160 - 400 X10*3/uL [facility] Mean Platelet Volume 8.9(L) 9.4 - 12.3 fL [facility] Neutrophils Percent Auto 79.5(H) 45 - 73 % [facility] Imm Gran Pct Auto 0.5(H) 0.0 - 0.4 % [facility] Lymphocytes Percent Auto 14.0(L) 20 - 40 % [facility] Monocytes Percent Auto 4.9 2 - 11 % [facility] Eosinophils Percent Auto 0.8 0 - 4 % [facility] Basophils Percent Auto 0.3 0 - 2 % [facility] NRBC Pct Auto 0.0 0.0 - 0.2 /100WBC [facility] Neutrophils Absolute Auto 12.1(H) 2.0 - 8.3 x10*3/uL [facility] Imm Gran Abs Auto 0.07(H) 0.00 - 0.03 X10*3/uL [facility] Lymphocytes Absolute Auto 2.1 1.2 - 4.9 X10*3/uL [facility] Monocytes Absolute Auto 0.7 0.1 - 1.2 X10*3/uL [facility] Eosinophils Absolute Auto 0.1 0.0 - 0.4 X10*3/uL [facility] Basophils Absolute Auto 0.1 0.0 - 0.2 X10*3/uL [facility] NRBC Abs Auto 0.000 0.0 - 0.012 X10*3/uL [facility] 12/26/2024 7:49 PM EDT 12/26/2024 7:53 PM EDT us Generic External Data Provider LAB BLOOD ORDERAB LES Final Result [facility] [address] [place] [phone] * hCG, Total, Quantitative (12/26/2024 7:49 PM EDT) HCG Quantitative <2 mIU/mL [facility] Comment:Weeks post LMP Appro ximate hCG(Last Menstrual Period) Range (mIU/ml)3 - 4 weeks 9 - 1304 - 5 weeks 75 - 2,6005 - 6 weeks 850 - 20,8006 - 7 weeks 4000 - 100,2007 - 12 weeks 11,500 - 289,49820 - 16 weeks 18,300 - 137,01776 - 29 weeks (2nd trimester) 1,400 - 53,68534 - 41 weeks (3rd trimester) 940 - [...] ORDERAB LES Final Result Performing Organization Address City/[facility]/ZIP Co de Phone Number [facility] [address] [place] [phone] * Lipase (12/26/2024 7:49 PM EDT) Lipase 14 8 - 78 U/L [facility] 12/26/2024 7:49 PM EDT 12/26/2024 7:53 PM EDT Generic External Data Provider LAB BLOOD ORDERAB LES Final Result Performing Organization Address [facility] de Phone Number [facility] [address] [place] [phone] * (ABNORMAL) Comprehensive Metabolic Panel (12/26/2024 7:49 PM EDT) Sodium 139 135 - 145 mmol/L [facility] Potassium 3.5 3.3 - 5.1 mmol/L [facility] Chloride 101 96 - 108 mmol/L [facility] Carbon Dioxide 26 22 - 29 mmol/L [facility] Anion Gap 16 12 - 20 [facility] Urea Nitrogen (BUN) 8(L) 9 - 16 mg/dL [facility] Creatinine, Serum 0.86 0.5 - 1.4 mg/dL [facility] Creatinine Clr Calc Pharmacy 126.1 [facility] Comment:Provided height and weight: 165.1 cm,119.7 kg.eGFR (calculated from the MDRD study equation) and eCrCl(calculated from the Cockcroft-Gault equation) are based ondifferent parameters and may not yield comparable results.If eCrCl result is absurd, please check patient'sheight/weight. Estimated Glomerular Filt Rate >60 [facility] Comment:Chronic Kidney Disea se: Estimated GFR < 60 mL/min/1.11m6Qrpste Kidney Disease: Estimated GFR < 15 mL/min/1.73m2 Glucose 113 60 - 115 mg/dL [facility] Calcium 9.7 8.4 - 10.2 mg/dL [facility] Bilirubin, Total 1.3(H) 0.0 - 1.0 mg/dL [facility] Aspartate Amino Transferase 39(H) 5 - 31 U/L [facility] Alanine Aminotransferase 36(H) 0 - 31 U/L [facility] Total Protein 8.5(H) 6.5 - 8.0 g/dL [facility] Albumin Level 4.8 3.5 - 5.0 g/dL [facility] Alkaline Phosphatase 128(H) 39 - 117 U/L [facility] 12/26/2024 7:49 PM EDT 12/26/2024 7:53 PM EDT Generic External Data Provider LAB BLOOD ORDERAB LES Final Result [facility] [address] [place] [phone] * HEPATITIS C AB W/REFL TO [...] a test for HCV RNA (test code 98400) is suggested. For additional information please refer to http://education.[employer]/faq/IMM60o2 (This link is being provided for informational/ educational purposes only.) 03/13/2022 11:3 3 AM EDT us Hernando Tarango ANP HISTORICAL/NON ORDERABLE LABS Fi nal Result CONVERTED LEGACY LABS * HIV 1/2 ANTIGEN/ANTIBODY,FOURTH GENERATION W/RFL (03/13/2022 11:33 AM EDT) Pathologist [facility] HIV-1/2 ANTIGEN AND ANTIBODIES, 4TH GENERATION W/ [...] purpose. For additional information please refer to http://education.[employer]/faq/BWS758 (This link is being provided for informational/ educational purposes only.) The performance of this assay has not been clinically validated in patients less than 2 years old. 03/13/2022 11:3 3 AM EDT us Hernando Tarango ANP LAB BLOOD ORDERABLES Final Resul t Performing Organization Address [facility] Co de Phone Number CON[facility]ED [facility]GACY LABS * (ABNORMAL) LIPID PANEL, STANDARD (03/13/2022 11:33 AM EDT) Pathologist [facility] Chol/HDLC Ratio 4.4 <5.0 (calc) CONVERTED LEGACY [...] factors. LDL-C is now calculated using the Nuha calculation, which is a validated novel method providing better accuracy than the Friedewald equation in the estimation of LDL-C. Rod SS et al. RUDOLPH. 2013;310(19): 5675-9458 (http://education.[employer].com/faq/GXJ578) Non-HDL Cholesterol 156(H) <130 mg/dL (calc) [facility] Comment: For patients with diabetes plus 1 major ASCVD risk factor, treating to a non-HDL-C goal of <100 mg/dL (LDL-C of <70 mg/dL) is considered a therapeutic option. Triglycerides 167(H) <150 mg/dL CONVE RTED LEGACY LABS 03/13/2022 11:3 3 AM EDT [facility] LAB BLOOD ORDERABLES Final Resul t CONVERTED LEGACY LABS from Last 3 Months or Most Recently Relevant to Health Maintenance [place] [address] [address] [place] [id number] Care Teams Line Construction Engineer Relationship Specialty Start Date End Date Hernando Tarango ANP [address] [place] [address] PCP - General Family Medicine 09/26/21
[2025-03-17 05:54] LABS: CT PCR NOT DETECTED (Not Detect.); NG PCR NOT DETECTED (Not Detect.)
== END 2025-03-16 12:20 | disposition home or self-care (01) ==
LOC: HO.HHCL 12:19
PROVIDERS: PCP Nurse Practitioner Primary Care; Referring Provider Family Medicine; Visit Provider Nurse Practitioner Primary Care
DX: Z20.2 Contact with and (suspected) exposure to infections with a predominantly sexual mode of transmission (principal); N92.6 Irregular menstruation, unspecified
CPT/HCPCS: 36415; 84443; 87491; 87591

== ENCOUNTER 2025-03-24 13:07 | Outpatient (REF) | payer MEDICAID, SELFPAY | END 2025-03-24 13:08 | disposition home or self-care (01) | LOC: HO.CHCLDS 13:07 | PROVIDERS: Visit Provider Nurse Practitioner Primary Care | DX: N92.6 Irregular menstruation, unspecified (principal) | CPT/HCPCS: 36415; 84146; 84702 ==

== ENCOUNTER 2025-03-25 09:57 | Outpatient (AMB) | payer MEDICAID, SELFPAY ==
--- NOTE | 2025-03-25 10:04 | A.OFFVIS_ITS ---
Vital Signs 03/25/25 10:58 Height 5 ft 5 in Weight 265 lb BMI 44.1 Intake Visit Reasons: ED follow up left ankle sprain Intake Note: Emily is a 30 year old female who presents to the office today for a 2 week follow up for a Gastrocnemius muscle tear. At last visit patient was recommended weight-bearing with cam boot. Pt states everything has been going well however she notes pain on the left side of her ankle and heel. Patient has been weight bearing as tolerated. Allergies No Known Allergies Allergy (Verified 03/25/25 10:58) HPI HPI ED follow up left ankle sprain: Details: 30-year-old female seen today for 2 week follow up evaluation of the left foot and ankle pain. She states she is ambulating in the cam boot and using her Raúl bandage. No longer having any leg pain. Her pain is still worse to the bottom of her heel, and worsens after she is sitting for a while. Still having some tenderness and swelling to her ankle. She is still out of work. History: On 02/22/2025, the patient states she was running and twisted her ankle and felt a pop. She was seen in the emergency room and received x-rays which were noted to be normal. She was discharged with crutches and an Raúl bandage. Since then, the patient has been icing and resting her leg however she notes the pain and swelling has worsened. She is not taking anything for pain currently. She also notes a history of chronic left ankle injuries, stating she sprains her ankle at least once per year. She notes a ' accident' that occurred in 2019 where she thinks she fractured her ankle however she never sought medical care at that time. [facility] Surgical History Morbid obesity Hx of eye surgery Hx of appendectomy Hx laparoscopic cholecystectomy History of wisdom tooth extraction, class II edentulism Family History Father No problems noted. Mother DM (diabetes mellitus) Heart disease Stroke Depression Anxiety Sister No problems noted. Sister No problems noted. Sister No problems noted. Sister No problems noted. Sister No problems noted. Sister No problems noted. Brother No problems noted. Brother No problems noted. Brother No problems noted. Brother No problems noted. Brother Obese Chronic mental illness Son Obese Asthma Son Autism Social History Alcohol intake: current Alcohol intake frequency: holidays/special occasions only Cigarettes Per Day: 10 Substance Use Type: Marijuana Review of Systems Const All systems reviewed & are unremarkable except as noted in HPI and below Physical Exam Vital Signs: BMI result Body Mass Index 44.1 Extrem Other: *Bilateral Lower Extremity Focused Foot/Ankle Exam Vascular: DP/PT 2/4, CFT<3s to digits, TG warm to cool, moderate lateral and anterior left ankle edema, pedal hair present Derm: Mild Ecchymosis present to the left anterior ankle and lateral ankle, mild ecchymosis to the medial calf. Neuro: Protective sensation grossly intact to bilateral lower extremities. Negative Tinel sign to the intermediate dorsal cutaneous nerve. Msk: Left ankle: Mild pain on palpation along the left lateral ankle ligaments No Pain on palpation along the deltoid ligament left ankle No Pain on palpation along the syndesmosis left ankle No pain on anterior drawer sign of the left ankle Decreased but mild tenderness on palpation over the anterior extensor tendons of the ankle to the level of the navicular. No pain to the Lisfranc ligament. No tenderness on palpation of the medial aspect of the gastrocnemius muscle, no pain to the lateral calf. No pain on maximum dorsiflexion of the ankle. No pain along the Achilles tendon, no talar defect. Plantar flexion strength 4+/5 intact. Moderate tenderness on palpation of the plantar medial calcaneal tubercle and along the plantar fascia band. Deformities: No evidence of hammertoes, bunions, Charcot changes, or other structural abnormalities. Gait: Antalgic Results Reviewed Results Reviewed: Podiatry X-ray Read: 02/22/2025 X-ray left ankle 3 views (AP, Mortise, Lateral) reviewed which shows likely healed andujar A fibula fracture, no acute fractures, dislocations, osteochondral defects. Anatomic alignment of the tibiotalar joint. Bone density is within normal limits. Large plantar heel spur. No evidence of swelling, foreign body, or calcifications. I personally reviewed the imaging and my findings are listed above. Assessment & Plan Assessment & Plan (1) Left ankle sprain: Code(s): S93.402A - Sprain of unspecified ligament of left ankle, initial encounter Category: Medical Qualifiers: Encounter type: initial encounter Involved ligament of ankle: anterior talofibular ligament Qualified Code(s): S93.492A - Sprain of other ligament of left ankle, initial encounter Plan: * The patient has at least a grade 2 ankle sprain, injuring the lateral ankle ligaments and deltoid ligament. * Continue rest ice compression elevation. * Continue range of motion exercises. * Referred to physical therapy * Continuing Cam boot for 1 week then transition into a lace-up ankle brace. * Follow up in 3 weeks (2) Plantar fascia syndrome: Code(s): M72.2 - Plantar fascial fibromatosis Category: Medical Plan: * Possible tear versus rupture of plantar fascia more consistent today with a new clinical symptoms as well as her history of feeling/hearing a pop. * Continue weight-bearing in Cam boot for 1 more week. Then transition into surgical shoe. * May require an MRI if symptoms persist. Orders: Orders PT Evaluation and Treatment Today M72.2 - Plantar fascial fibromatosis, S93.492A - Sprain of other ligament of left ankle, initial encounter Medications: New meloxicam Take one tablet daily, with food. 15 mg PO DAILY 14 tabs 1RF ankle sprain S93.492A - Sprain of other ligament of left ankle, initial encounter Coding Level of Care Code Est Pt Level 3 (55867) Diagnoses Sprain of anterior talofibular ligament of left ankle, initial encounter S93.492A Encounter type: initial encounter Involved ligament of ankle: anterior talofibular ligament Plantar fascia syndrome M72.2 Time Spent (min) 35
[2025-03-25 10:58] VITALS: BMI 44.1
--- OUTSIDE RECORDS SUMMARY | 2025-03-25 11:47 | XMS_ITS | Encounter Summary ---
Author Organization [employer] Address [address] [facility] [address], [place] [address] Care Team Providers Care Bag Sewer Name Role Phone Kayla Valdes Primary Care Provider [phone] Reason for Visit * Reason Onset Date Comments Lab Orders 03/18/2025 Encounter Details Date Type Department Care Team ([facility] st Contact Info) Description 03/18/2025 Telephone [facility] MEDICINE [address], [place] [phone] Kayla Valdes ANP [address] [place] [address] Lab Orders Social History Tobacco Use Types Packs/Day Years Used Date Smoking Tobacco: Every Day Cigarettes 0.5 10.1 Started: 05/18/2022 Alcohol Use Standard Drinks/Week Comments [...] the past 12 months, has t he [employer], gas, oil or water company threatened to [...] encounter Miscellaneous Notes * Telephone Encounter - Hina Viera RN - 03/24/2025 12:15 PM EDT Telephone call to pt who reports no period still, no spotting, some cramping. Advised her of plan below: - get labs done (HCG and prolactin) - if negative, initiate Provera challenge as it has been 2 months since she has had her period. PCPwould send Provera medication to help initiate menses (5mg for 7 days), explained it is expected that she get a period to start up to 7 days after finishing last pill). - scheduled pt for 2 week telehealth follow up with PCP to discuss further. Pt verbalized understanding, states she will try to get labs done today. * Telephone Encounter - EDMOND Castellano - 03/24/2025 11:58 AM EDT Sorry - if still no period, recommend check hcg quant and if it is negative now, with also another lab to check prolactin, would recommend we do a provera challenge as it has been 2 months (5mg for 7days and then we would expect period to start up to 7 days after finishing last pill). * Telephone Encounter - Eleazar Millard - 03/18/2025 4:29 PM EDT Tc from pt requesting a lab order for blood test Contact pt at [phone] documented in this encounter Plan of Treatment Upcoming Encounters Date Type Department Care Team (Late st Contact Info) Description 04/08/2025 11:15 AM EST Telemedicine [address] [address] Kayla Valdes ANP [address] [place] [phone] 05/03/2025 11:00 AM EST Office Visit [address] [address] Kayla Valdes ANP [address] [place] [phone] documented as of this encounter Visit Diagnoses Not on filedocumented in this encounter Additional Health Concerns Assessment Noted Time PHQ-9 Depression Total Score: 1 11/10/19 25 9:53 AM EDT documented as of this encounter Care Teams Bag Sewer Relationship Specialty Start Date End Date Kayla Valdes ANP [address] [place] [phone] PCP - General Family Medicine 09/26/21 documented as of this encounter
--- OUTSIDE RECORDS SUMMARY | 2025-03-25 11:47 | XMS_ITS | Encounter Summary ---
Author Organization [employer] Address [address] [facility] [address], [place] [address] Care Team Providers Care Press Brake Operator Name Role Phone Kayla Valdes Primary Care Provider [phone] Reason for Visit * Reason Onset Date Comments Nurse Triage 03/24/2025 Encounter Details Date Type Department Care Team ([facility] st Contact Info) Description 03/24/2025 Telephone [facility] MEDICINE [address] [place], [place] [phone] Kayla Valdes ANP [address] [place] [address] Nurse Triage Social History Tobacco Use Types Packs/Day Years [...] encounter Miscellaneous Notes * Telephone Encounter - Randee Quintero RN - 03/24/2025 11:03 AM EDT Noted pt. Was seen by PCP 03/16/25, urine hcg was done at appointment and negative. LMP noted to be01/23/25. Thyroid function ordered and normal. TC placed to pt., pt. Confirms LMP as 01/23/25. Confirms menstrual cycle prior to this was regular. Reports last urine test that was done was the one in office 03/16/25. Pt. Reports she has had cramping occur several times that feels like her menstrual period is coming, but no bleeding or spotting. Pt. Also reports breast tenderness similar to PMS. Denies nausea or vomiting. Pt. Agrees to appointment tomorrow at 1pm with ANDER Cross for further evaluation Protocol Used: Menstrual Period - Missed or Late (Adult) Protocol-Based Disposition: See in Office or Video Visit within 2 Weeks Positive Triage Question: * Missed 2 or more periods in a row, and cause is not known * All higher-acuity triage questions were negative * Telephone Encounter - Vasiliy Matthew - 03/24/2025 10:00 AM EDT Symptom: Menstrual Periods Absent or Missed Outcome: Schedule an appointment to be seen within 24 hours Reason: This is the only possible outcome for this symptom Please contact pt at [phone]. documented in this encounter Plan of Treatment Upcoming Encounters Date Type Department Care Team (Late st Contact Info) Description 04/08/2025 11:15 AM EST Telemedicine [address] [address] Kayla Valdes ANP [address] [place] [phone] 05/03/2025 11:00 AM EST Office Visit [facility] MEDICINE [address] [place] [phone] Kayla Valdes ANP [address] [place] [phone] documented as of this encounter Visit Diagnoses Not on filedocumented in this encounter Additional Health Concerns Assessment Noted Time PHQ-9 Depression Total Score: 1 11/10/19 25 9:53 AM EDT documented as of this encounter Care Teams Press Brake Operator Relationship Specialty Start Date End Date Kayla Valdes ANP [address] [place] [phone] PCP - General Family Medicine 09/26/21 documented as of this encounter
--- OUTSIDE RECORDS SUMMARY | 2025-03-25 11:47 | XMS_ITS | Encounter Summary ---
Author Organization [employer] Address [address] [facility] 7t [place] [address] Care Team Providers Care Plastics Spreading Machine Operator Name Role Phone Kayla Valdes Primary Care Provider Encounter Details Date Type Department Care Team ([facility] st Contact Info) Description 03/24/2025 Orders Only [facility] MEDICINE [address] [place], [place] [phone] Kayla Valdes ANP [address] [place] [address] Missed menses (Primary Dx) Social History Tobacco Use Types Packs/Day Years [...] on file documented as of this encounter Progress Notes * EDMOND Castellano - 03/24/2025 11:56 AM EDT If menses still not present check labs as below and if normal will recommend and provera challenge (5mg x7d) Diagnoses and all orders for this visit: Missed menses - hCG, Total, Quantitative; Future - Prolactin; Future documented in this encounter Plan of Treatment Upcoming Encounters Date Type Department Care Team (Late st Contact Info) Description 04/08/2025 11:15 AM EST Telemedicine [facility] MEDICINE [address] [place] [phone] Kayla Valdes ANP [address] [place] [phone] 05/03/2025 11:00 AM EST Office Visit [facility] MEDICINE [address] [place] [phone] Kayla Valdes ANP [address] [place] [address] documented as of this encounter Procedures Procedure Name Priority Date/Time Associated Diagnosis Comments PROLACTIN Routine 03/24/2025 1:08 PM EDT Missed menses HCG, TOTAL, QN Routine 03/24/2025 1:08 PM EDT Missed menses documented in this encounter Results * Prolactin (03/24/2025 1:08 PM EDT) Prolactin 7.0 ng/mL [facility] Comment:Reference Range Fema les Non- 3.0-30.0 10.0-209.0 Postmenopausal 2.0-20.0THIS TEST WAS PERFORMED AT:[facility] [place] [id number] MORELAND MD Blood Venous blood specimen / Unknown 03/24/2025 1:08 PM EDT 03/24/2025 1:55 PM EDT us Kayla PRUITT LAB BLOOD ORDERABLES Final Resul t [facility] [address] [place] [phone] * hCG, Total, Quantitative (03/24/2025 1:08 PM EDT) HCG Quantitative <2 mIU/mL [facility] Comment:Weeks post LMP Appro ximate hCG(Last Menstrual Period) Range (mIU/ml)3 - 4 weeks 9 - 1304 - 5 weeks 75 - 2,6005 - 6 weeks 850 - 20,8006 - 7 weeks 4000 - 100,2007 - 12 weeks 11,500 - 289,28204 - 16 weeks 18,300 - 137,21813 - 29 weeks (2nd trimester) 1,400 - 53,43772 - 41 weeks (3rd trimester) 940 - 60,000The Chen B- hCG assay is used for the early detection ofpregnancy; it cannot be used to diagnose any conditionunrelated to . If a B-hCG level is not supportedby the clinical evidence, results should be confirmed by analternative method (qualitative urine hCG, for example). Blood Venous blood specimen / Unknown 03/24/2025 1:08 PM EDT 03/24/2025 1:55 PM EDT Kayla Valdes ANP LAB BLOOD ORDERABLES Final Resul t [facility] [address] [place] [phone] documented in this encounter Visit Diagnoses Diagnosis Missed menses- Primary documented in this encounter Additional Health Concerns Assessment Noted Time PHQ-9 Depression Total Score: 1 11/10/19 25 9:53 AM EDT documented as of this encounter Care Teams Plastics Spreading Machine Operator Relationship Specialty Start Date End Date Kayla Valdes ANP [address] [place] [phone] PCP - General Family Medicine 09/26/21 documented as of this encounter
--- OUTSIDE RECORDS SUMMARY | 2025-03-25 11:47 | XMS_ITS | Encounter Summary ---
Author Organization [employer] Address [address] [facility] 7 [place] [address] Care Team Providers Care Cattle Inspector Name Role Phone Kayla Valdes Primary Care Provider [phone] Encounter Details Date Type Department Care Team ([facility] st Contact Info) Description 03/25/2025 Results Follow-Up [facility] MEDICINE [address] [place] [address] Kayla Valdes, ANP [address] [place] [address] hCG, Total, Quantitative, Prolactin Social History Tobacco Use Types Packs/Day Years [...] as of this encounter Miscellaneous Notes * Result Encounter Note - EDMOND Castellano - 03/25/2025 9:07 AM EDT Hi Emily, Your labs were normal - I will send the provera to take as discussed with the nurse yesterday. It will be 1 tab once daily for 7 days, and then give us a call if you do not get your period w/in 7 days of taking the last pill. Please call our office if you have any questions. Por favor llame a la oficina si tiene preguntas. Take care, Cu??Kayla landa CORPORATE SECURITIES RESEARCH ANALYST documented in this encounter Plan of Treatment Upcoming Encounters Date Type Department Care Team ([facility] styles Contact Info) Description 04/08/2025 11:15 AM EST Telemedicine [facility] MEDICINE [address] [place] [address] Kayla Valdes ANP [address] [place] [address] 05/03/2025 11:00 AM EST Office Visit [facility] MEDICINE [address] [place] [phone] Kayla Valdes ANP [address] [place] [address] documented as of this encounter Visit Diagnoses Diagnosis Missed menses- Primary documented in this encounter Additional Health Concerns Assessment Noted Time PHQ-9 Depression Total Score: 1 11/10/19 25 9:53 AM EDT documented as of this encounter Care Teams Cattle Inspector Relationship Specialty Start Date End Date Kayla Valdes ANP [address] [place] [phone] PCP - General Family Medicine 09/26/21 documented as of this encounter
--- OUTSIDE RECORDS SUMMARY | 2025-03-25 11:47 | XMS_ITS | Clinical Summary ---
Author Organization [employer] Address [address] 7 [place] [address] Care Team Providers Care Client Support Coordinator Name Role Phone Lucio Hernando PRUITT Primary Care Provider [phone] Allergies Active Allergy Reactions Criticality Noted Date Comments Phentermine Syncope 03/18/2025 Medications cholestyramine (Questran) 4 g packetIndication s:Postcholecyste ctomy diarrhea Take 1 packet (4 g) by mouth with breakfast, with lunch, and with evening meal. 90 packet 11 5 11/10/19 26 Active albuterol 108 (90 Base) MCG/ACT inhalerIndicatio ns:Mild intermittent asthma without complication INHALE 2 PUFFS BY MOUTH EVERY 4 HOURS NEEDED FOR SHORTNESS OF BREATH OR WHEEZING 18 g 5 Active buPROPion (Wellbutrin) 75 MG tabletIndication s:Cigarette nicotine dependence without complication Take 1 tablet (75 mg) by mouth 2 times daily. 60 tablet 1 5 Active medroxyPROGESTER one (Provera) 5 MG tabletIndication s:Missed menses Take 1 tablet (5 mg) by mouth Once per day. 7 tablet 5 Active phentermine 15 MG capsuleIndicatio ns:Class 3 severe obesity due to excess calories with body mass index (BMI) of 45.0 to 49.9 in adult, unspecified whether serious comorbidity present (HCC) Take 1 capsule (15 mg) by mouth before breakfast. 30 capsule 2 5 03/18/20 25 Discontin ued(Side effects) Active Problems Problem Noted Date Diagnosed Date [...] Encounters Date Type Department Care Team Description 03/25/2025 Results Follow-Up [address] [address] Hernando Tarango ANP hCG, Total, Quantitative, Prolactin 03/24/2025 Orders Only [address] [address] Hernando Tarango ANP Missed menses (Primary Dx) 03/24/[address] [address] Hernando Tarango ANP Nurse Triage 03/18/[address] [address] Hernando Tarango ANP Lab Orders 03/16/2025 11:15 AM EDT Office Visit [address] [address] Hernando Tarango ANP Class 3 severe obesity with body mass index (BMI) of 45.0 to 49.9 in adult, unspecified obesity type, unspecified whether serious comorbidity present (HCC) (Primary Dx); Acute left ankle pain; Cigarette nicotine dependence without complication; Routine screening for STI (sexually transmitted infection); Dietary counseling; Exercise counseling; Irregular menses; Sprain of left ankle, unspecified ligament, subsequent encounter 03/16/2025 Results Follow-Up [address] [address] Hernando Tarango ANP TSH W/Reflex to FT4, Chlamydia/N. Gonorrhoeae RNA, TMA, Vagina 03/16/2025 Travel 03/15/[address] [address] Hernando Tarango ANP chart prep 03/10/[address] [address] Hernando Tarango ANP Appointment Request 03/03/2025 Patient Outreach [address] [address] Hernando Taarngo ANP Care Coordination ([facility]/HARJEET Rocha- ADT Outreach-Declined to participate) 02/24/2025 Patient Outreach [address] [address] Hernando Tarango ANP Care Coordination ([facility]/ZEKE Stuart TC#1- ADT outreach-LV) 02/24/2025 Patient Outreach [address] [address] Hernando Tarango ANP Care Coordination ([facility]/ZEKE Stuart, Chart Review) 02/24/2025 Patient Outreach [address] [address] Hernando Tarango ANP Care Management ([facility] chart review) 02/24/2025 Patient Outreach [address] [address] Hernando Tarango ANP 02/23/2025 Orders Only [facility] External Provider, [facility] 02/10/[address] [address] Hernando Tarango ANP chart prep 02/09/[address] [address] Hernando Tarango ANP Nurse Triage 02/04/[address] [address] Hernando Tarango ANP No Show 02/03/2025 Telephone [facility] [address] [place] [phone] Hernando Tarango ANP chart prep 02/03/2025 Refill [facility] [address] [place] [address] Giselle Gross MD Mild intermittent asthma without complication 12/30/2024 Telephone [facility] [address] [place] [address] [place] 12/30/2024 Telephone [facility] [address] [place] [phone] [place], [place] 12/26/2024 Orders Only GENERIC EXTERNAL DATA DEPARTMENT Provider, Generic External Data from Last 3 Months Immunizations Immunization Administration [...] Every Day Cigarettes 0.5 10.1 Started: 05/18/2022 Tobacco Cessation:Ready to Q uit: [...] Info) Description 04/08/2025 11:15 AM EST Telemedicine [facility] [address] [place] [address] Hernando Tarango ANP [address] [place] [address] 05/03/2025 11:00 AM EST Office Visit [address] [address] Hernando Tarango ANP [address] [place] [address] Health Maintenance Due Date Last Done Comments [...] Routine 03/24/2025 1:08 PM EDT Missed menses TSH W/REFLEX TO FT4 Routine 03/16/2025 1 2:40 PM EDT Irregular menses POCT , URINE Routine 03/16/2025 11:59 AM EDT Irregular menses CHLAMYDIA/N. GONORRHOEAE RNA, TMA, UROGENITAL Routine 03/16/2025 11:50 AM EDT Routine screening for STI (sexually transmitted infection) XR ANKLE 3+ VIEWS LEFT Routine 9:20 [...] Recently Relevant to Health Maintenance Results * Prolactin (03/24/2025 1:08 PM EDT) Prolactin 7.0 ng/mL [facility] Comment:Reference Range Fema les Non- 3.0-30.0 10.0-209.0 Postmenopausal 2.0-20.0THIS TEST WAS PERFORMED AT:[facility] [place] [phone] MORELAND MD Blood Venous blood specimen / Unknown 03/24/2025 1:08 PM EDT 03/24/2025 1:55 PM EDT Hernando [facility] LAB BLOOD ORDERABLES Final Resul t Performing Organization Address City/State/[facility] Co de Phone Number [facility] [address] [place] [address] [phone] * hCG, Total, Quantitative (03/24/2025 1:08 PM EDT) Only the most recent of2 resultswithin the time period is included. HCG Quantitative <2 mIU/mL [facility] Comment:Weeks post LMP Appro ximate hCG(Last Menstrual Period) Range (mIU/ml)3 - 4 weeks 9 - 1304 - 5 weeks 75 - 2,6005 - 6 weeks 850 - 20,8006 - 7 weeks 4000 - 100,2007 - 12 weeks 11,500 - 289,43718 - 16 weeks 18,300 - 137,52599 - 29 weeks (2nd trimester) 1,400 - 53,88578 - 41 weeks (3rd trimester) 940 - [...] PM EDT 03/24/2025 1:55 PM EDT us Hernando PRUITT LAB BLOOD ORDERABLES Final Resul t Performing Organization Address [facility] Co de Phone Number [facility] [address] [place] [address] [phone] * TSH W/Reflex to FT4 (03/16/2025 12:40 PM EDT) TSH reflex Free T4 1.91 0.32 - 4.0 uIU/mL [facility] Blood Venous blood specimen / Unknown 03/16/2025 12:40 PM EDT 03/16/2025 1:11 PM EDT us Henrando Tarango ANP LAB BLOOD ORDERABLES Final Resul t [facility] [address] [place] [phone] * POCT Urine (03/16/2025 11:59 AM EDT) Preg Test, Ur Negative Negative, Indeterminate, None Detected, Invalid, Specimen unsatisfactory for evaluation, Weakly Positive, 2+ QC Media Lot # [id number] Lot# Expiration Date [id number] Urine 03/16/2025 11:5 9 AM EDT [facility] POINT OF CARE TEST ENTER/EDIT OR DERABLES Final Result * Chlamydia/N. Gonorrhoeae RNA, TMA, Vagina (03/16/2025 11:50 AM EDT) Pathologist [facility] CT PCR NOT DETECTED Not Detect. [facility] Comment:A not detected test result does not exclude the possibilityof infection because test results can be affected byimproper specimen collection, concurrent antibiotic therapy,or the number of organisms in the specimen which may bebelow the sensitivity of the test. As with many diagnostictests, results from the Xpert CT/NG assay should beinterpreted in conjunction with other laboratory andclinical data available to the clinician.Xpert CT/NG performance has not been evaluated in patientsless than 14 years of age. The assay should not be used forthe evaluationof suspected sexual abuse or for other medico-legalindications. Additional testing is recommended in anycircumstance when false positive or false negative resultscould lead to adverse medical, social or psychologicalconsequences. NG PCR NOT DETECTED Not Detect. [facility] Comment:A not detected test result does not exclude the possibilityof infection because test results can be affected byimproper specimen collection, concurrent antibiotic therapy,or the number of organisms in the specimen which may bebelow the sensitivity of the test. As with many diagnostictests, results from the Xpert CT/NG assay should beinterpreted in conjunction with other laboratory andclinical data available to the clinician.Xpert CT/NG performance has not been evaluated in patientsless than 14 years of age. The assay should not be used forthe evaluationof suspected sexual abuse or for other medico-legalindications. Additional testing is recommended in anycircumstance when false positive or false negative resultscould lead to adverse medical, social or psychologicalconsequences. Swab Vaginal structure / Unknown 03/16/2025 11:50 AM EDT 03/16/2025 5:15 PM EDT us Hernando Tarango ANP LAB MICROBIOLOGY - GENERAL ORDER JOSE Final Result [facility] [address] [place] [phone] * XR Ankle 3+ Views Left (02/23/2025 9:20 AM EDT) Anatomical Region Laterality Modality Lower Extremities, Ankle Left Radiogr aphic Imaging 02/23/2025 9:20 AM EDT Narrative 02/23/2025 9:40 AM EDT [address] [address] XRay Report Signed Patient: Emily Solis MR#: [id number] : 1995 Acct:[id number] Age/Sex: 30 / F ADM Date: 02/23/25 Loc: HO.ED Attending Dr: Ordering Physician: Generic ED Physician Date of Service: 02/23/25 Procedure(s): XR ankle LT min 3V Accession Number(s): [id number] cc: Generic ED Physician; HERNANDO TARANGO NP [...] in OV> 02/23/25936 DD/ 9 TD/TT: 02/23/25924 Aerotriangulation Specialist: Procedure Note Donotuseinterpreter, Image - 02/23/[address] [address] XRay Report Signed Patient: Emily SolisMR#: [id number] : 1995Acct:[id number] Age/Sex: 30 / FADM Date: 02/23/25 Loc: .ED Attending Dr: Ordering Physician: Generic ED Physician Date of Service: 02/23/25 Procedure(s): XR ankle LT min 3V Accession Number(s): [id number] cc: Generic ED Physician; HERNANDO TARANGO NP [...] signed by Charan Marroquin MD in OV> 02/23/2537 DD/ 9 TD/TT: 02/23/25924 Aerotriangulation Specialist: us [facility] External Provider IMG XR PROCEDURES Edited Result - Final * CT Abdomen Pelvis w/ Contrast (12/27/2024 12:24 AM EDT) Anatomical Region Laterality Modality Body, Pelvis, Abdomen Computed T omography 12/27/2024 12:2 4 AM EDT Narrative 12/27/2024 12:26 AM EDT [address] [address] [address] Scan Report Signed Patient: Emily Solis MR#: [id number] : 1995 Acct:[id number] Age/Sex: 29 / F ADM Date: 12/26/24 Loc: HO.ED Attending Dr: Ordering Physician: Carrie García Date of Service: 12/26/24 Procedure(s): CT abdomen pelvis w IV con Accession Number(s): [id number] cc: Carrie García; HERNANDO TARANGO NP Report Number: [id number]: Total DLP = 947.00 mGy-cm CLINICAL HISTORY: [...] MD in OV> 12/27/2424 DD/ TD/TT: 12/27/2423 Aerotriangulation Specialist: Procedure Note Donotuseinterpreter, Image - 12/27/[address] [address] [address] Scan Report Signed Patient: Emily Solis#: [id number] : 1995Acct:[id number] Age/Sex: 29 / FADM Date: 12/26/24 Loc: HO.ED Attending Dr: Ordering Physician: Carrie García Date of Service: 12/26/24 Procedure(s): CT abdomen pelvis w IV con Accession Number(s): [id number] cc: Carrie García; HERNANDO TARANGO NP Report Number: [id number]: Total DLP = 947.00 mGy-cm CLINICAL HISTORY: [...] MD in OV> 12/27/24 0025 DD/ TD/TT: 12/27/2423 Aerotriangulation Specialist: [facility] External Provider IMG CT PROCEDURES Final Result * (ABNORMAL) Urinalysis, Complete, with Reflex to Culture (12/26/2024 9:08 PM EDT) Color Urine Dark Yellow [facility] Appearance Urine Cloudy [facility] PH 6.0 5.0 - 9.0 [facility] Glucose Urine UA Negative Negative mg/dL [facility] Urine Blood Negative Negative [facility] Specific [place] - Urine >=1.030(H) 1.005 - 1.025 [facility] Urine Protein 100 (2+)(A) Neg-Trace mg/dL [facility] Urine Ketones 80 Negative mg/dL [facility] Nitrite Urine Positive(A) Negative [facility] Leukocyte Esterase Urine Small (1+)(A) Negative [facility] RBC Urine 3-5(A) 0 - 2 /HPF [facility] Urine WBC 0-5 0 - 5 /HPF [facility] Urine Squamous Epithelial Cell 11-20 0 - 2 /HPF [facility] Urine Bacteria 4+ None Seen [facility] Hyaline Casts, Urine 3-5 0 - 2 /LPF [facility] 12/26/2024 9:08 PM EDT 12/26/2024 9:11 PM EDT Narrative [facility] - 12/26/2024 9:34 PM EDT [id number], Clean Catch Generic External Data Provider LAB URINE ORDERAB LES Final Result Performing Organization Address [facility] Co de Phone Number [facility] [address] [place] [phone] * Culture, Urine, Routine (12/26/2024 9:08 PM EDT) Urine Urine specimen obtained by clean catch procedure / Unknown 12/26/2024 9:08 PM EDT 12/26/2024 9:35 PM EDT Comment:[facility] Narrative [facility] - 12/28/2024 8:16 AM EDT Urine Culture Report Result Urine Culture > 100,000 cfu/ml Urine Culture Mixed bacterial reynaldo characteristic of Urine Culture urogenital contamination. Specimen Source: Urine clean catch Generic External Data Provider LAB MICROBIOLOGY - GENERAL ORDERABLES Final Result Performing Organization Address [facility] Co de Phone Number [facility] [address] [place] [phone] * (ABNORMAL) CBC auto differential (12/26/2024 7:49 PM EDT) White Blood Count 15.2(H) 4.8 - 10.8 X10*3/uL [facility] Red Blood Count 4.27 4.20 - 5.50 X10*6/uL [facility] Hemoglobin 14.5 12.0 - 16.0 g/dl [facility] Hematocrit 40.3 37.0 - 47.0 % [facility] Mean Corpuscular Volume 94.4 80.0 - 98.0 fL [facility] Mean Corpuscular Hemoglobin 34.0(H) 27.0 - 33.0 pg [facility] Mean Corpuscular HGB Conc 36.0(H) 31.0 - 35.0 g/dl [facility] Red Cell Distribution Width 14.0 11.0 - 16.0 % [facility] Platelet Count 312 160 - 400 X10*3/uL [facility] Mean Platelet Volume 8.9(L) 9.4 - 12.3 fL [facility] Neutrophils Percent Auto 79.5(H) 45 - 73 % [facility] Imm Gran Pct Auto 0.5(H) 0.0 - 0.4 % [facility] Lymphocytes Percent Auto 14.0(L) 20 - 40 % [facility] Monocytes Percent Auto 4.9 2 - 11 % [facility] Eosinophils Percent Auto 0.8 0 - 4 % [facility] Basophils Percent Auto 0.3 0 - 2 % [facility] NRBC Pct Auto 0.0 0.0 - 0.2 /100WBC [facility] Neutrophils Absolute Auto 12.1(H) 2.0 - 8.3 x10*3/uL [facility] Imm Gran Abs Auto 0.07(H) 0.00 - 0.03 X10*3/uL [facility] Lymphocytes Absolute Auto 2.1 1.2 - 4.9 X10*3/uL [facility] Monocytes Absolute Auto 0.7 0.1 - 1.2 X10*3/uL [facility] Eosinophils Absolute Auto 0.1 0.0 - 0.4 X10*3/uL [facility] Basophils Absolute Auto 0.1 0.0 - 0.2 X10*3/uL [facility] NRBC Abs Auto 0.000 0.0 - 0.012 X10*3/uL [facility] 12/26/2024 7:49 PM EDT 12/26/2024 7:53 PM EDT Generic External Data Provider LAB BLOOD ORDERAB LES Final Result Performing Organization Address [facility]/ZIP Co de Phone Number [facility] [address] [place] [phone] * Lipase (12/26/2024 7:49 PM EDT) Pathologist [facility] Lipase 14 8 - 78 U/L [facility] 12/26/2024 7:49 PM EDT 12/26/2024 7:53 PM EDT Generic External Data Provider LAB BLOOD ORDERAB LES Final Result Performing Organization Address [facility] Co de Phone Number [facility] [address] [place] [phone] * (ABNORMAL) Comprehensive Metabolic Panel (12/26/2024 7:49 PM EDT) Pathologist [facility] Sodium 139 135 - 145 mmol/L [facility] Potassium 3.5 3.3 - 5.1 mmol/L [facility] Chloride 101 96 - 108 mmol/L [facility] Carbon Dioxide 26 22 - 29 mmol/L [facility] Anion Gap 16 12 - 20 [facility] Urea Nitrogen (BUN) 8(L) 9 - 16 mg/dL [facility] Creatinine, Serum 0.86 0.5 - 1.4 mg/dL [facility] Creatinine Clr Calc Pharmacy 126.1 [facility] Comment:Provided height and weight: 165.1 cm,119.7 kg.eGFR (calculated from the MDRD study equation) and eCrCl(calculated from the Cockcroft-Gault equation) are based ondifferent parameters and may not yield comparable results.If eCrCl result is absurd, please check patient'sheight/weight. Estimated Glomerular Filt Rate >60 [facility] Comment:Chronic Kidney Disea se: Estimated GFR < 60 mL/min/1.73c9Cburvw Kidney Disease: Estimated GFR < 15 mL/min/1.73m2 Glucose 113 60 - 115 mg/dL [facility] Calcium 9.7 8.4 - 10.2 mg/dL [facility] Bilirubin, Total 1.3(H) 0.0 - 1.0 mg/dL [facility] Aspartate Amino Transferase 39(H) 5 - 31 U/L [facility] Alanine Aminotransferase 36(H) 0 - 31 U/L [facility] Total Protein 8.5(H) 6.5 - 8.0 g/dL [facility] Albumin Level 4.8 3.5 - 5.0 g/dL [facility] Alkaline Phosphatase 128(H) 39 - 117 U/L [facility] 12/26/2024 7:49 PM EDT 12/26/2024 7:53 PM EDT us Generic External Data Provider LAB BLOOD ORDERAB LES Final Result [facility] [address] [place] [phone] * HEPATITIS C AB W/REFL TO [...] a test for HCV RNA (test code 00687) is suggested. For additional information please refer to http://education.[employer]/faq/APN08m2 (This link is being provided for informational/ educational purposes only.) 03/13/2022 11:3 3 AM EDT us Hernando Tarango ANP HISTORICAL/NON ORDERABLE LABS Fi nal Result Performing Organization Address [facility] de Phone Number [facility] * [...] purpose. For additional information please refer to http://education.[employer]/faq/SPN277 (This link is being provided for informational/ educational purposes only.) The performance of this assay has not been clinically validated in patients less than 2 years old. 03/13/2022 11:3 3 AM EDT us Hernando Tarango ANP LAB BLOOD ORDERABLES Final Resul t Performing Organization Address [facility] de Phone Number [facility]Y [facility] * [...] LDL-C. Rod SS et al. RUDOLPH. 2013;310(19): 8381-7547 (http://education.[employer]Watt/faq/CQE350) Non-HDL Cholesterol 156(H) <130 mg/dL (calc) [facility] Comment: For patients with diabetes plus 1 major ASCVD risk factor, treating to a non-HDL-C goal of <100 mg/dL (LDL-C of <70 mg/dL) is considered a therapeutic option. Triglycerides 167(H) <150 mg/dL [facility] 03/13/2022 11:3 3 AM EDT [facility] Tarango [facility] LAB BLOOD ORDERABLES Final Resul t CON[facility]ED [facility]GACY [facility] from Last 3 Months or Most Recently Relevant to Health Maintenance [place] [address] [place] [address] C3 Care Teams Client Support Coordinator Relationship Specialty Start Date End Date Hernando Tarango ANP [address] [place] [phone] PCP - General Family Medicine 09/26/21
== END 2025-03-25 10:35 | disposition home or self-care (01) ==
LOC: HO.HPODS 09:57
PROVIDERS: PCP Nurse Practitioner Primary Care; Visit Provider Student in an Organized Health Care Education/Training Program
DX: S93.492A Sprain of other ligament of left ankle, initial encounter (principal); M72.2 Plantar fascial fibromatosis
CPT/HCPCS: 99213

== ENCOUNTER → 2025-03-25 09:57 | Outpatient (BNVA) | payer MEDICAID, SELFPAY | PROVIDERS: PCP Nurse Practitioner Primary Care; Visit Provider Student in an Organized Health Care Education/Training Program | DX: S93.492A Sprain of other ligament of left ankle, initial encounter (principal); M72.2 Plantar fascial fibromatosis; W18.40XA Slipping, tripping and stumbling without falling, unspecified, initial encounter; Y93.02 Activity, running; Y92.9 Unspecified place or not applicable | CPT/HCPCS: 99212 ==

== ENCOUNTER 2025-05-04 11:06 | Outpatient (AMB) | payer MEDICAID, SELFPAY ==
[2025-05-04 11:21] VITALS: BMI 44.1
--- NOTE | 2025-05-04 11:21 | A.OFFVIS_ITS ---
Vital Signs 05/04/25 11:21 Height 5 ft 5 in Weight 265 lb BMI 44.1 Intake Visit Reasons: Left ankle sprain Intake Note: Emily is a 30 year old female who presents to the office today for a follow up Left ankle sprain. At last visit pt was prescribed Meloxicam and was instructed to continue weight-bearing in Cam boot for 1 more week- then transition into a surgical shoe. Pt has been going to PT and pt states she complaints of swelling in the ankle after prolonged standing and walking, she also complains of mild pain in the heel. Allergies No Known Allergies Allergy (Verified 03/25/25 10:58) HPI HPI Left ankle sprain: Details: 30-year-old female seen today for 2 week follow up evaluation of the left foot and ankle pain. She returned to work and is no longer wearing her cam boot. She states she wears the lace-up ankle brace most of the time, and she does find relief with it, however she is not using it today. She still has persistent pain to the both sides of her ankle, and worse to her heel. She has not yet started physical therapy. She also is not taking anything for pain. History: On 02/22/2025, the patient states she was running and twisted her ankle and felt a pop. She was seen in the emergency room and received x-rays which were noted to be normal. She was discharged with crutches and an Raúl bandage. Since then, the patient has been icing and resting her leg however she notes the pain and swelling has worsened. She is not taking anything for pain currently. She also notes a history of chronic left ankle injuries, stating she sprains her ankle at least once per year. She notes a ' accident' that occurred in 2019 where she thinks she fractured her ankle however she never sought medical care at that time. [facility] Surgical History Morbid obesity Hx of eye surgery Hx of appendectomy Hx laparoscopic cholecystectomy History of wisdom tooth extraction, class II edentulism Family History Father No problems noted. Mother DM (diabetes mellitus) Heart disease Stroke Depression Anxiety Sister No problems noted. Sister No problems noted. Sister No problems noted. Sister No problems noted. Sister No problems noted. Sister No problems noted. Brother No problems noted. Brother No problems noted. Brother No problems noted. Brother No problems noted. Brother Obese Chronic mental illness Son Obese Asthma Son Autism Social History Alcohol intake: current Alcohol intake frequency: holidays/special occasions only Cigarettes Per Day: 10 Substance Use Type: Marijuana Review of Systems Const All systems reviewed & are unremarkable except as noted in HPI and below Physical Exam Vital Signs: BMI result Body Mass Index 44.1 Extrem Other: *Bilateral Lower Extremity Focused Foot/Ankle Exam Vascular: DP/PT 2/4, CFT<3s to digits, TG warm to cool, mild left lateral ankle edema, pedal hair present Derm: No ecchymosis present to the left anterior ankle and lateral ankle, mild ecchymosis to the medial calf. Neuro: Protective sensation grossly intact to bilateral lower extremities. Negative Tinel sign to the intermediate dorsal cutaneous nerve. Msk: Left ankle: Decreased but moderate tenderness on palpation of the plantar medial calcaneal tubercle and along the plantar fascia band. Mild pain on palpation along the left lateral ankle ligaments and on maximum inversion. No Pain on palpation along the deltoid ligament left ankle. Mild tenderness on palpation to the posterior tibial tendon retromalleolar region. No Pain on palpation along the syndesmosis left ankle No pain on anterior drawer sign of the left ankle Decreased but mild tenderness on palpation over the anterior extensor tendons of the ankle to the level of the navicular. No pain to the Lisfranc ligament. No tenderness on palpation of the medial aspect of the gastrocnemius muscle, no pain to the lateral calf. No pain on maximum dorsiflexion of the ankle. No pain along the Achilles tendon, no talar defect. Plantar flexion strength 5/5 intact. Deformities: No evidence of hammertoes, bunions, Charcot changes, or other structural abnormalities. 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 * She was referred for an MRI left ankle to rule out a plantar fascia rupture/tear. The patient requires an MRI due to failing conservative treatment for 10 weeks. * Rx meloxicam (2) Left ankle sprain: Code(s): S93.402A - Sprain of unspecified ligament of left ankle, initial encounter Category: Medical Qualifiers: Encounter type: initial encounter Involved ligament of ankle: anterior talofibular ligament Qualified Code(s): S93.492A - Sprain of other ligament of left ankle, initial encounter Plan: * The patient has at least a grade 2 ankle sprain, injuring the lateral ankle ligaments and deltoid ligament. * A handout was dispensed for range of motion and stretching exercises for the ankle sprain and the plantar fascia * Instructed the patient to begin physical therapy * Continue lace-up ankle brace * Referred for left ankle MRI to evaluate for lateral ankle ligament tear/rupture (3) Peroneal tendonitis: Code(s): M76.70 - Peroneal tendinitis, unspecified leg Category: Medical Qualifiers: Laterality: left Qualified Code(s): M76.72 - Peroneal tendinitis, left leg Plan: * Instructed to perform range of motion and stretching exercises Orders: Orders PT Evaluation and Treatment Today M72.2 - Plantar fascial fibromatosis, M76.70 - Peroneal tendinitis, unspecified leg, S93.492A - Sprain of other ligament of left ankle, initial encounter MR ankle LT wo con Today M72.2 - Plantar fascial fibromatosis, S93.492A - Sprain of other ligament of left ankle, initial encounter Coding Level of Care Code Est Pt Level 3 (03288) Diagnoses Plantar fascia syndrome M72.2 Sprain of anterior talofibular ligament of left ankle, initial encounter S93.492A Encounter type: initial encounter Involved ligament of ankle: anterior talofibular ligament Peroneal tendinitis of left lower extremity M76.72 Laterality: left Time Spent (min) 25
== END 2025-05-04 11:54 | disposition home or self-care (01) ==
LOC: HO.HPODS 11:06
PROVIDERS: PCP Nurse Practitioner Primary Care; Visit Provider Student in an Organized Health Care Education/Training Program
DX: M72.2 Plantar fascial fibromatosis (principal); S93.492A Sprain of other ligament of left ankle, initial encounter; M76.72 Peroneal tendinitis, left leg
CPT/HCPCS: 99213

== ENCOUNTER → 2025-05-04 11:06 | Outpatient (BNVA) | payer MEDICAID, SELFPAY | PROVIDERS: PCP Nurse Practitioner Primary Care; Visit Provider Student in an Organized Health Care Education/Training Program | DX: S93.492A Sprain of other ligament of left ankle, initial encounter (principal); M72.2 Plantar fascial fibromatosis; M76.72 Peroneal tendinitis, left leg; Y93.02 Activity, running; Y92.9 Unspecified place or not applicable; X58.XXXA Exposure to other specified factors, initial encounter | CPT/HCPCS: 99212 ==